=== PATIENT | male | born 1950 | race Caucasian/White ===

== ENCOUNTER 2021-01-02 15:30 | Emergency (ER) | payer OTHER, SELFPAY ==
[2021-01-02 15:40] VITALS: BP 190/87; PULSE 86; RESP 12; TEMP 36.1; O2SAT 96; BMI 28.5
--- NOTE | 2021-01-02 15:45 | DI.RAD.S_ITS ---
PROCEDURE: XR KNEE LT 3V INDICATIONS: KNEE POPPED NOW UNABLE TO BEAR WEIGHT TECHNIQUE: 3 views of the knee were acquired. COMPARISON: None. FINDINGS: Bones: No fractures or dislocations. No suspicious bony lesions. Mild degenerative joint disease. Soft tissues: Small joint effusion. No suspicious soft tissue calcifications. IMPRESSION: No acute osseous abnormalities. Small knee joint effusion. Dictated by: Alfred Vu M.D. on 01/02/2021 at 16:50 Approved by: Alfred Vu M.D. on 01/02/2021 at 16:52
--- NOTE | 2021-01-02 17:46 | ED_ITS ---
HPI - Extremity Injury (Lower) General Chief Complaint: Extremity Injury, Lower Stated Complaint: heard a pop in left knee, now non wt bearing Time Seen by Provider: 01/02/21 16:38 Source: patient Mode of arrival: Ambulatory Limitations: no limitations History of Present Illness HPI Narrative: 70-year-old male here for evaluation of a left knee injury. He states he was at work getting down out of the piece of equipment. It sounds like his left leg (which is the 1 that is injured) was straight at the time when he stepped on a ledge. He is unsure exactly what happened next but he thinks that maybe his foot slipped and he heard a pop on his left knee. Since that time he has had quite a bit of discomfort with putting pressure on his leg. He has had surgery on this knee in the past and has had some cartilage repair. She reports no other injuries from Related Data Previous Rx's Medication Instructions Recorded hydrocodone-acetaminophen 1 tab PO Q6H PRN #7 tab 01/02/21 Allergies Allergy/AdvReac Type Severity Reaction Status Date / Time No Known Drug Allergies Allergy Verified 01/02/21 15:41 Review of Systems Musculoskeletal Comments: Left knee pain Integumentary/Breasts Skin/Breast: Denies rash Hematologic/Lymphatic On Anticoagulants: No Patient History Medical History Arthritis tobacco type: vaping Substance Use Type: does not use Exam Initial Vital Signs Initial Vital Signs: Vital Signs Temperature 97.0 F L 01/02/21 15:40 Pulse Rate 86 01/02/21 15:40 Respiratory Rate 12 01/02/21 15:40 Blood Pressure 190/87 H 01/02/21 15:40 Pulse Oximetry 96 01/02/21 15:40 Const General: cooperative, healthy appearing and comfortable HENCT Head: normal to inspection and normocephalic Resp Effort & Inspection: normal respiratory effort Cardio Pulses: dorsalis pedis present on the left Skin Lesions: no lesions Rashes: no rashes Neuro General: patient alert and patient awake Cognition: normal cognition Speech: speech normal Extrem General: capillary refill normal Other: Patient has tenderness to palpation noted along the left lateral hamstring tendon. He states that palpation of this does reproduce the pain that brought him into the emergency department. He can do a straight leg raise. His quadriceps and patellar tendon are intact. The hamstring tendon does appear to be intact. Psych Appearance: grossly normal and well kempt Course Orders Ordered: ED Orders 01/02/21 15:45 XR knee LT 3V Stat Vital Signs Vital signs: Vital Signs - 8 hr 01/02/21 15:40 Temperature 97.0 F L Pulse Rate 86 Respiratory Rate 12 Blood Pressure 190/87 H Pulse Oximetry 96 MDM - Extremity Injury (Lower) Imaging Data Extremity x-ray #1: Radiologist's Impression: [address] [id number] ReportSigned Patient: Kahlil Cantu RMR#: [id number]: 2Acct:[id number]/Sex: 70 / MDate of Service: 01/02/21Loc: EDAccession Number: [id number] Procedure: XR knee LT 3V Ordering Provider: Alexander Marlow D.O. PROCEDURE: XR KNEE LT 3V INDICATIONS: KNEE POPPED NOW UNABLE TO BEAR WEIGHT TECHNIQUE: 3 views of the knee were acquired. COMPARISON: None. FINDINGS: Bones: No fractures or dislocations. No suspicious bony lesions. Mild degenerative joint disease. Soft tissues: Small joint effusion. No suspicious soft tissue calcifications. IMPRESSION: No acute osseous abnormalities. Small knee joint effusion. Dictated by: Alfred Vu M.D. on 01/02/2021 at 16:50 Approved by: Alfred Vu M.D. on 01/02/2021 at 16:52 MDM Narrative Medical decision making narrative: He is neurovascularly intact. X-ray shows no signs of fracture. I was able to reproduce the tenderness that brought him to the emergency department with palpation of the left lateral hamstring tendon. I suspect that he has a hamstring strain. I have lower suspicion that he has torn hamstring as the tendon appears to be intact as I palpate along its distribution. I did discuss the findings with him. He does have crutches that he can use for his comfort. We discussed return precautions and follow-up instructions. He expressed understanding and agreement. Discharge Plan Departure Patient Disposition: Home Clinical Impression: Left hamstring injury Instructions: DI for Hamstring Strain Activity Restrictions/Additional Instructions: You can walk on your leg as tolerated. Recommend you continue with the anti- inflammatories. Contact your primary provider for a follow-up. Return to the emergency department for any new or worsening symptoms Prescriptions: New hydrocodone-acetaminophen 5-325 mg tablet 1 tab PO Q6H PRN (Reason: pain) Qty: 7 RF: 0
[2021-01-02 18:01] VITALS: BP 170/74; PULSE 62; O2SAT 98
== END 2021-01-02 18:02 | disposition home or self-care (01) ==
PROVIDERS: Emergency Provider Emergency Medicine
DX: S89.92XA Unspecified injury of left lower leg, initial encounter (principal); X58.XXXA Exposure to other specified factors, initial encounter
CPT/HCPCS: 73562; 99283

== ENCOUNTER 2021-03-29 10:46 | Emergency (ER) | payer OTHER, SELFPAY ==
[2021-03-29 10:58] VITALS: BP 217/88; PULSE 58; RESP 14; TEMP 36.5; O2SAT 99; BMI 28.5
--- NOTE | 2021-03-29 11:17 | ED.NEUROSD ---
HPI - Neuro Symptoms/Deficit General Chief Complaint: Neuro Symptoms/Deficit Stated Complaint: follow up after loss of vision Time Seen by Provider: 03/29/21 10:49 Source: patient Mode of arrival: Ambulatory Limitations: no limitations History of Present Illness HPI Narrative: 70-year-old male smoker with history of hypertension and hyperlipidemia presents at the request of his conservation science teacher for a stroke evaluation. The patient developed some vision change about 1 month ago and initially saw his conservation science teacher and was then referred to a retinal specialist whom he just saw few days ago. His symptoms had largely improved and he complains of nothing but that small area of vision change in his left eye only. He has had no change with speech, dizziness, ataxia or extremity numbness, tingling or weakness. He had evaluation by the retinal conservation science teacher who suggested a revascularized and largely resolved branch retinal artery occlusion and because the patient does not have a PCP he sent him to the emergency department for carotid Dopplers, echocardiogram and EKG. Patient is well and free of complaint otherwise On Anticoagulants: Yes (ASA 81 mg daily) Related Data Home Medications Medication Instructions Recorded Confirmed amlodipine 10 mg tablet 10 mg PO QAM 03/29/21 03/29/21 aspirin 81 mg tablet 81 mg PO BEDTIME 03/29/21 03/29/21 losartan 100 mg tablet 100 mg PO BEDTIME 03/29/21 03/29/21 Allergies Allergy/AdvReac Type Severity Reaction Status Date / Time No Known Drug Allergies Allergy Verified 03/29/21 11:03 Review of Systems Review of Systems Narrative: GENERAL: Denies chills, fatigue, malaise, fever, sweats. HEENT: Denies sinus pain, ear pain, sore throat, difficulty swallowing, dizziness. RESPIRATORY: Denies dyspnea, cough, wheezing, hemoptysis, sputum. CARDIOVASCULAR: Denies chest pain, palpitations, orthopnea, edema, GASTROINTESTINAL: Denies nausea, vomiting, abdominal pain, diarrhea, constipation, melena. : Denies dysuria, frequency, incontinence, hematuria, urinary retention. MUSCULOSKELETAL: denies weakness, joint pain, or bony pain SKIN: Denies rash, skin lesions, or other NEUROLOGIC: See HPI PSYCHIATRIC: No concerning psychosocial issues. 12 point review of systems is negative except for those stated above Hematologic/Lymphatic On Anticoagulants: Yes (ASA 81 mg daily) Patient History Medical History Arthritis Social History Smoking Status: Current some day smoker Smoking Status: Current some day smoker tobacco type: vaping alcohol intake frequency: 0-2 drinks per day Substance Use Type: does not use Exam Narrative Exam Narrative: GEN: AOx3 and in mild distress EYES: Pupils are equal, round, and reactive to light and accommodation. Extraoccular muscles are intact bilaterally. There is no subconjunctival hemorrhage or exudate. CHEST: Lungs are clear to auscultation bilaterally and free of wheezes, rales, or rhonchi. Heart rate is regular rhythm, there are no murmurs, clicks, rubs, or gallops. There is no chest wall tenderness. ABD: Abdomen is soft and nontender. There is no guarding or rebound. Bowel sounds are normal in all 4 quadrants. There is no mass or organomegaly. EXT: Full painless ROM of all extremities with no loss of sensation or strength. SKIN: Warm, pink, and dry. No erythema or rash NIH Stroke Scale 1a. LOC: Patient is alert and keenly responsive (0) 1b. LOC Questions: Patient answers both LOC questions accurately (0) 1c. LOC Commands: Patient performs both tasks correctly (0) 2. Best Gaze: Normal (0) 3. Visual: No visual loss (0) 4. Facial palsy: Normal symmetrical movements (0) 5. Motor arm: No drift (0) 6. Motor leg: No drift (0) 7. Limb ataxia: Absent (0) 8. Sensory: Normal (0) 9. Best language: No aphasia; normal (0) 10. Dysarthria: Normal (0) 11. Extinction and inattention: No abnormality (0) NIHSS: 0 Initial Vital Signs Initial Vital Signs: Vital Signs Temperature 97.7 F 03/29/21 10:58 Pulse Rate 58 L 03/29/21 10:58 Respiratory Rate 14 03/29/21 10:58 Blood Pressure 217/88 H 03/29/21 10:58 Pulse Oximetry 99 03/29/21 10:58 Course Consultations Consultation #1: discussion with patient ophtho (Dr. Parmar) suggests workup within the week. Consultation #2: call to Dr. Figueroa. She is happy to help, requests that I sent the note from Dr. Parmar and she will arrange studies as an outpatient and see him within the week. Vital Signs Vital signs: Vital Signs - 8 hr 03/29/21 10:58 Temperature 97.7 F Pulse Rate 58 L Respiratory Rate 14 Blood Pressure 217/88 H Pulse Oximetry 99 MDM - Neuro Symptoms/Deficit MDM Narrative Medical decision making narrative: Patient had neurologic insult 1 month ago and improvement of embolic events with visualized collateral flow by ophtho. Patient does need a workup but will not need admission in order to complete this. Outpatient arrangements have been arranged. Patient has been given extensive return precautions and all questions answered to his apparent satisfaction Discharge Plan Departure Patient Disposition: Home Clinical Impression: Alteration in vision Instructions: DI for Visual Field Disturbances Activity Restrictions/Additional Instructions: *You have been diagnosed with [History of branch retinal artery occlusion, with improvement] *What to do: *Please continue to take your regular medications as directed. * as I told her, I discussed your case with your conservation science teacher (Dr. Parmar) and your PCP (Dr. Figueroa). I have faxed information to Dr. Figueroa and she will order the tests that Dr. Parmar wanted as an outpatient and will then see you in the office within the week. *Return to Emergency Department if you should have any new, worsening or concerning symptoms, such as [fever greater than 101 F, shaking chills, worsening pain, persistent vomiting or other bothersome symptoms] Prescriptions: No Action amlodipine 10 mg tablet 10 mg PO QAM RF: 0 aspirin 81 mg Tablet 81 mg PO BEDTIME RF: 0 losartan 100 mg tablet 100 mg PO BEDTIME RF: 0 Referrals: Krissy Figueroa MD [Physician] -
== END 2021-03-29 11:40 | disposition home or self-care (01) ==
PROVIDERS: Emergency Provider Emergency Medicine
DX: H54.7 Unspecified visual loss (principal)
CPT/HCPCS: 99281

== ENCOUNTER → 2021-04-19 08:01 | Outpatient (CLI) | payer OTHER, SELFPAY ==
--- NOTE | 2021-04-19 | DI.ECHO.S_ITS ---
[facility] + + Hospital +---------+ : : [address] : : : : [address] [place] : : : : [place], : : : : [place] [address] : : : : Phone: [phone] + + [id number] Echocardiogram Report + + :Name: BERNADINE ROMO Study Date: 04/19/2021 Height: 74 in : :[facility] ReadingLocation: Weight: 225 lb : : Gender: Male BSA: 2.3 m2 : :: 1950 Age: 70 yrs BP: 133/62 mmHg: :Reason For Study: RETINAL ARTERY OCCLUSION : : Performed By: Jorge Back : :Referring: HIMA DILLARD : + + Interpretation Summary Normal left ventricle size with ejection fraction 60-65%. Mildly dilated both atria. The aortic valve is mildly calcified. No valvular regurgitation, Procedure: A two-dimensional transthoracic echocardiogram with color flow and Doppler was performed. The study quality was technically adequate. There is no prior echocardiogram noted for this patient. The patient was in normal sinus rhythm during the exam. The patient had frequent PVCs during the exam. Left Ventricle: The left ventricle is normal in size. There is normal left ventricular wall thickness. The ejection fraction is estimated to be 60-65%. There are no focal wall motion abnormalities. Right Ventricle: The right ventricle is normal in size and function. Atria: Both atria are mildly dilated. There is no Doppler evidence for an atrial septal defect. Mitral Valve: The mitral valve is normal in structure and function. There is trace mitral regurgitation. Aortic Valve: The aortic valve is trileaflet. The aortic valve is mildly calcified. The aortic valve opens well. No aortic regurgitation is present. Tricuspid Valve: The tricuspid valve is normal in structure and function. There is trace tricuspid regurgitation. The right ventricular systolic pressure is estimated to be at least 22 mmHg based on an estimated right atrial pressure of 3 mm Hg. Pulmonic Valve: The pulmonic valve is normal in structure and function. There is trace pulmonic regurgitation. Great Vessels: The aortic root is normal size. The dimensions of the ascending aorta are normal. The pulmonary artery is normal size. The IVC is of normal diameter and collapses greater than 50% with a sniff. This suggests a low right atrial pressure of 3 mm Hg. Pericardium/ Pleura There is no pericardial effusion. There is no pleural effusion. MMode/2D Measurements & Calculations LVIDd: 5.5 cm LVOT diam: 2.1 cm LVIDs: 3.2 cm Ao root diam: 3.5 cm IVSd: 1.0 cm asc Aorta Diam: 2.8 cm LVPWd: 0.81 cm Ao Arch Diam (Prox Trans): 2.6 cm LV valverde. diameter/BSA (cm/m^2): 2.4 LV sys. diameter/BSA (cm/m^2): 1.4 FS: 42.1 % EPSS: 0.60 cm LA A2 area: 24.7 cm2 RA long axis: 5.5 cm LA A4 area: 24.8 cm2 RA area: 22.3 cm2 LA length (vol): 5.9 cm RA vol: 77.0 ml LA vol: 88.4 ml RA : 33.7 ml/m2 LA vol index: 38.7 ml/m2 IVC diam: 1.5 cm Doppler Measurements & Calculations Ao V2 max: 198.7 cm/sec LVOT Max Ignacio: 139.0 cm/sec Ao V2 mean: 147.1 cm/sec LV V1 max P.7 mmHg Ao V2 VTI: 52.1 cm LV V1 VTI: 30.8 cm Ao max P.8 mmHg Ao mean P.4 mmHg APOLINAR(I,D): 2.1 cm2 MV E max ignacio: 89.1 cm/sec APOLINAR(V,D): 2.5 cm2 MV A max ignacio: 82.8 cm/sec APOLINAR indexed to BSA (cm^2/m^2): 0.93 MV E/A: 1.1 sev ratio: 0.59 Med Peak E' Ignacio: 5.7 cm/sec E/E' med: 15.7 Lat Peak E' Ignacio: 8.2 cm/sec E/E' lat: 10.9 E/e' average: 13.3 MV dec time: 0.25 sec TR max ignacio: 219.0 cm/sec TR max P.2 mmHg PA V2 max: 106.3 cm/sec SV(LVOT): 111.2 ml PA V2 mean: 78.4 cm/sec PA mean P.7 mmHg PA pr(Accel): 27.6 mmHg Electronically signed by: Nayan Amado on Reading Physician:04/19/2021 04:53 PM
--- NOTE | 2021-04-19 | DI.US.S_ITS ---
PROCEDURE: US CAROTID DOPPLER BI INDICATIONS: RETINAL ARTERY BRANCH OCCLUSION LEFT EYE TECHNIQUE: Color and pulse Doppler interrogation was performed of both carotid systems, with image documentation and velocity measurements. COMPARISON: None. FINDINGS: Stenosis calculations are based on SRU (Society of Radiologists in Ultrasound) criteria. Right side: Brachial blood pressure: 144/77 mm Hg. Common carotid artery peak systolic velocity: 70 cm/sec. Internal carotid artery peak systolic velocity: 100 cm/sec. Internal carotid artery end diastolic velocity: 28 cm/sec. External carotid artery peak systolic velocity: 90 cm/sec. ICA/CCA peak systolic ratio: 1.4 Mcguire scale imaging description: Moderate atherosclerotic changes are seen. Percent internal carotid artery stenosis: Less than 50% by velocity criteria. Vertebral artery: The right vertebral artery is not well seen. Left side: Brachial blood pressure: 141/76 mm Hg. Common carotid artery peak systolic velocity: 112 cm/sec. Internal carotid artery peak systolic velocity: 238 cm/sec. Internal carotid artery end diastolic velocity: 54 cm/sec. External carotid artery peak systolic velocity: 100 cm/sec. ICA/CCA peak systolic ratio: 2.1 Mcguire scale imaging description: Moderate atherosclerotic change can be seen. Percent internal carotid artery stenosis: Greater than 70% by velocity criteria Vertebral artery: Flow direction is antegrade. IMPRESSION: There is a greater than 70% stenosis seen of the left internal carotid artery. Vascular surgery consultation is recommended. A dedicated CT angiogram of the neck may also be helpful for further evaluation. Dictated by: Ankur Lira M.D. on 04/19/2021 at 16:23 Approved by: Ankur Lira M.D. on 04/19/2021 at 16:24
== END ==
PROVIDERS: PCP Student in an Organized Health Care Education/Training Program; Referring Provider Student in an Organized Health Care Education/Training Program; Visit Provider Student in an Organized Health Care Education/Training Program
DX: H34.232 Retinal artery branch occlusion, left eye (principal); I65.22 Occlusion and stenosis of left carotid artery
CPT/HCPCS: 93306; 93880

== ENCOUNTER 2021-10-16 18:35 | Inpatient (IN) | payer MEDICARE, SELFPAY ==
[2021-10-16] VITALS (7 sets, daily range): BP systolic 140–182; BP diastolic 70–105; PULSE 62–82; RESP 20–22; TEMP 36.3–38.6; O2SAT 88–99; BMI 27.6
--- NOTE | 2021-10-16 18:39 | DI.RAD.S_ITS ---
PROCEDURE: XR CHEST 1V INDICATIONS: chest pain TECHNIQUE: One view of the chest was acquired. COMPARISON: None. FINDINGS: Surgical changes and devices: None. Lungs and pleura: Mildly coarsened interstitial markings. No consolidation, pleural effusions or pneumothorax. Mediastinum: Mediastinal contours appear normal. The cardiac silhouette is upper limits of normal. Bones and chest wall: No suspicious bony lesions. Overlying soft tissues appear unremarkable. IMPRESSION: No acute cardiopulmonary abnormality. Dictated by: Rc Jerez M.D. on 10/16/2021 at 19:29 Approved by: Rc Jerez M.D. on 10/16/2021 at 19:30
[2021-10-16 18:47] LABS: Add Manual Diff / Slide Review NO; Basophils Absolute Auto 300 /uL (0-100); Basophils Percent Auto 1.2 % (0-2); Eosinophils Absolute Auto 1500 /uL (0-450); Eosinophils Percent Auto 6.7 % (2-4); Hematocrit 43.6 % (41-53); Lymphocytes Absolute Auto 5400 /uL (1100-4500); Lymphocytes Percent Auto 24.6 % (25-40); Mean Corpuscular HGB Conc 34.5 % (30-36); Mean Corpuscular Volume 89.8 fL (80-100); Monocytes Absolute Auto 1400 /uL (0-900); Monocytes Percent Auto 6.6 % (3-14); Neutrophils Absolute Auto 13300 /uL (1500-7000); Neutrophils Percent Auto 60.9 % (50-75); Platelet Count 340 X10^3/uL (150-400); Red Blood Cell Count 4.86 X10^6/uL (4.5-5.9); Red Cell Distribution Width 13.2 % (11.6-14.8); White Blood Cell Count 21.9 X10^3/uL (4.5-11.0)
--- NOTE | 2021-10-16 18:50 | DI.CT.S_ITS ---
PROCEDURE: CT ABDOMEN PELVIS W CON INDICATIONS: abd pain, epigastric/Rsided TECHNIQUE: After the administration of oral and IV contrast, axial sections were acquired from the lung bases to the pubic symphysis. Coronal and sagittal reformats were performed. For radiation dose reduction, the following was used: automated exposure control, adjustment of mA and/or kV according to patient size. COMPARISON: None. FINDINGS: Image quality: Excellent. Lung bases: Unremarkable. Heart: No significant findings. ABDOMEN: Liver: Unremarkable. Gallbladder: Unremarkable. Biliary ducts: Unremarkable. Pancreas: Unremarkable. Spleen: Unremarkable. Adrenal Glands: Unremarkable. Kidneys and Ureters: Symmetric enhancement without evidence of obstructive uropathy. Bilateral cortical hypoattenuating lesions are seen measuring up to 2.9 cm, compatible with cysts. Stomach and Bowel: Small hiatal hernia. Wall thickening of the duodenum with surrounding fluid, compatible with duodenitis. Sigmoid diverticulosis. The appendix appears normal. Peritoneum: A few scattered foci of free intraperitoneal gas are seen. Ventral Wall: Trace fat containing periumbilical hernia. Abdominal Nodes: No retroperitoneal or mesenteric adenopathy by size criteria. Vessels: Aorta and inferior vena cava are normal in size. PELVIS: Pelvic Organs: Unremarkable. Bladder: Not well distended. Pelvic Nodes: No enlarged lymph nodes. Miscellaneous: No inguinal hernias are seen. Lipoma of the left spermatic cord. Bones: Unremarkable. IMPRESSION: 1. Duodenitis with micro perforation. Findings were discussed with the ordering physician at the time of dictation. Dictated by: Rc Jerez M.D. on 10/16/2021 at 19:39 Approved by: Rc Jerez M.D. on 10/16/2021 at 19:46
--- NOTE | 2021-10-16 18:51 | ED_ITS ---
HPI - Abdominal Pain General Chief Complaint: Chest Pain Stated Complaint: chest/abd pain/vomiting x1 day Time Seen by Provider: 10/16/21 18:43 Source: patient and family Mode of arrival: Ambulatory Limitations: no limitations History of Present Illness HPI narrative: This is a 70 year old male with complaint of abdominal pain sudden onset this evening in the epigastric area and radiating to the right side. Patient denies radiation to back. He's had four days of [place] with vomiting for 24 hours. No fevers or chills. No back or flank pain. Denies chest pain. Shortness of breath with pain. Been having regular bowel movements. No hematochezia or melena. No issues with urination. Pain is constant with no relief. History of cardiac stent x 1 and left carotid endarectomy in July 2021, hypertension and dyslipidemia. On asa 81mg daily. Remote bilateral knee surgery. No tob, alcohol or illicit. Krissy Figueroa is PCP. Related Data Home Medications Medication Instructions Recorded Confirmed amlodipine 10 mg tablet 10 mg PO QAM 03/29/21 10/17/21 aspirin 81 mg tablet 81 mg PO BEDTIME 03/29/21 10/17/21 losartan 100 mg tablet 100 mg PO BEDTIME 03/29/21 10/17/21 atorvastatin 80 mg PO BEDTIME 10/17/21 10/17/21 fenofibrate 54 mg tablet 54 mg PO DAILY 10/17/21 10/17/21 Allergies Allergy/AdvReac Type Severity Reaction Status Date / Time No Known Drug Allergies Allergy Verified 10/18/21 12:56 Review of Systems Review of Systems ROS Unobtainable: All systems reviewed & are unremarkable except as noted in HPI and below Patient History Medical History Arthritis Social History household members: none Smoking Status: Former smoker alcohol intake: former Smoking Status: Current some day smoker tobacco type: vaping alcohol intake frequency: 0-2 drinks per day Substance Use Type: does not use Exam Narrative Exam Narrative: GENERAL: Alert and oriented x three, male in moderate distress. HEENT: Head normocephalic, atraumatic, EOMI, pupils reactive, face symmetric, moist mucous membranes NECK: Supple, full range of motion CARDIOVASCULAR: Regular rate and rhythm without murmurs, rubs or gallops. RESPIRATORY: Breath sounds equal bilaterally, no wheezes rales or rhonchi. ABDOMEN: Soft, patient has epigastric tenderness. Hyperbowel sounds all 4 quadrants. No guarding or rebound, rigidity, no mass. No pulsatile mass. : No CVA tenderness EXTREMITIES: Normal range of motion, no clubbing or edema. Neurovascularly intact. Full range of motion. NEUROLOGICAL: Cranial nerves II through XII grossly intact. Moving all extremities SKIN: Warm, dry, no petechiae, no rashes or lesions. Initial Vital Signs Initial Vital Signs: Vital Signs Temperature 97.4 F L 10/16/21 18:51 Pulse Rate 62 10/16/21 18:51 Respiratory Rate 22 10/16/21 18:51 Blood Pressure 182/81 H 10/16/21 18:51 Pulse Oximetry 99 10/16/21 18:51 Course Orders Ordered: Acetaminophen (Acetaminophen 325 Mg Tablet) 650 mg PO Q6HR PRN PRN Reason: Fever/Mild Pain (1-3) Amlodipine Besylate (Amlodipine 5 Mg Tablet) 10 mg PO DAILY [facility] Atorvastatin Calcium (Atorvastatin 20 Mg Tablet) 80 mg PO BEDTIME [facility] Last Admin: 10/18/21 20:22 Dose: Not Given Documented by: RAMOS Enoxaparin Sodium (Enoxaparin 40 Mg/0.4 Ml Syringe) 40 mg SUBCUT DAILY [facility] Last Admin: 10/18/21 09:15 Dose: 40 mg Documented by: Admin: 10/17/21 09:00 Dose: 40 mg Documented by: CARISSA Fenofibrate (Fenofibrate, Micronized 67 Mg Capsule) 67 mg PO DAILY [facility] Fentanyl (Fentanyl 100 Mcg/2 Ml Inj) 0 mcg IV Q5M PRN PRN Reason: Pain, Moderate (4-6) Hydromorphone HCl (Hydromorphone 2 Mg Inj) 0 mg IV Q5M PRN PRN Reason: Pain, Severe (7-10) Piperacillin Sod/Tazobactam (Sod 3.375 gm/ Sodium Chloride) 100 mls @ 25 mls/hr IV Q8H [facility] Last Admin: 10/19/21 03:55 Dose: 25 mls/hr Documented by: Infusion: 10/19/21 00:21 Dose: 0 mls/hr Documented by: Admin: 10/18/21 20:21 Dose: 25 mls/hr Documented by: Infusion: 10/18/21 14:00 Dose: 0 mls/hr Documented by: Admin: 10/18/21 13:25 Dose: 25 mls/hr Documented by: Infusion: 10/18/21 12:27 Dose: 0 mls/hr Documented by: Admin: 10/18/21 03:39 Dose: 25 mls/hr Documented by: Infusion: 10/17/21 23:01 Dose: 0 mls/hr Documented by: [email or web address] Admin: 10/17/21 19:01 Dose: 25 mls/hr Documented by: Infusion: 10/17/21 17:03 Dose: 25 mls/hr Documented by: Admin: 10/17/21 13:03 Dose: 25 mls/hr Documented by: Infusion: 10/17/21 13:00 Dose: 25 mls/hr Documented by: Admin: 10/17/21 03:54 Dose: 25 mls/hr Documented by: Admin: 10/16/21 21:52 Dose: Not Given Documented by: IQRA Fluconazole (Diflucan) 200 mg in 100 mls @ 100 mls/hr IV 0900 KELIN Last Infusion: 10/18/21 19:31 Dose: 0 mls/hr Documented by: Admin: 10/18/21 09:15 Dose: 100 mls/hr Documented by: Infusion: 10/17/21 10:36 Dose: 100 mls/hr Documented by: Admin: 10/17/21 09:36 Dose: 100 mls/hr Documented by: CARISSA Multivitamins 10 ml/ Chromium/Copper/Manganese/Seleni/Zn 1 ml/ Amino Acids/Electrolytes 1,011 mls @ 42.125 mls/hr IV 1800 ONE Stop: 10/19/21 17:59 Last Admin: 10/18/21 19:36 Dose: Not Given Documented by: RAMOS Lorazepam (Lorazepam 2 Mg/Ml Inj) 1 mg IV Q4HR PRN PRN Reason: Cramping Last Admin: 10/17/21 10:01 Dose: 1 mg Documented by: Admin: 10/17/21 02:57 Dose: 1 mg Documented by: IQRA Losartan Potassium (Losartan 50 Mg Tablet) 100 mg PO DAILY [facility] Last Admin: 10/18/21 09:14 Dose: 100 mg Documented by: Admin: 10/17/21 08:54 Dose: 100 mg Documented by: CARISSA Morphine Sulfate (Morphine 2 Mg/Ml Inj) 6 mg IV Q4HR PRN PRN Reason: Pain, Severe (7-10) Last Admin: 10/19/21 04:56 Dose: 6 mg Documented by: Admin: 10/19/21 00:50 Dose: 6 mg Documented by: Admin: 10/18/21 21:13 Dose: 4 mg Documented by: Admin: 10/18/21 17:44 Dose: 4 mg Documented by: Admin: 10/18/21 05:28 Dose: 6 mg Documented by: Admin: 10/17/21 18:28 Dose: 4 mg Documented by: CARISSA Naloxone HCl (Naloxone 0.4 Mg/Ml Vial) 0.2 mg IV Q2MIN PRN PRN Reason: Opiate Reversal Naloxone HCl (Naloxone 0.4 Mg/Ml Vial) 0.2 mg IV Q2MIN PRN PRN Reason: Opiate Reversal Ondansetron HCl (Ondansetron 4 Mg/2 Ml Inj) 4 mg IV Q6HR [facility] Last Admin: 10/19/21 05:23 Dose: Not Given Documented by: Admin: 10/19/21 02:11 Dose: Not Given Documented by: Admin: 10/18/21 19:32 Dose: Not Given Documented by: Admin: 10/18/21 12:30 Dose: Not Given Documented by: Admin: 10/18/21 05:28 Dose: 4 mg Documented by: [email or web address] Admin: 10/18/21 00:18 Dose: 4 mg Documented by: Admin: 10/17/21 18:26 Dose: 4 mg Documented by: Admin: 10/17/21 13:00 Dose: Not Given Documented by: Admin: 10/17/21 05:28 Dose: 4 mg Documented by: Admin: 02/16/22 23:35 Dose: 4 mg Documented by: IQRA Ondansetron HCl (Ondansetron 4 Mg/2 Ml Inj) 4 mg IV NOW PRN PRN Reason: Nausea And Vomiting Oxycodone HCl (Oxycodone Ir 10 Mg Tablet) 20 mg PO Q3HR PRN PRN Reason: Pain, Severe (7-10) Last Admin: 10/18/21 09:15 Dose: 20 mg Documented by: Admin: 10/17/21 22:36 Dose: 20 mg Documented by: Admin: 10/17/21 17:15 Dose: 20 mg Documented by: Admin: 10/17/21 13:01 Dose: 20 mg Documented by: Admin: 10/17/21 09:57 Dose: 20 mg Documented by: CARISSA Pantoprazole Sodium (Pantoprazole 40 Mg Vial) 40 mg IV BID [facility] Last Admin: 10/18/21 20:21 Dose: 40 mg Documented by: Admin: 10/18/21 09:15 Dose: 40 mg Documented by: Admin: 10/17/21 20:21 Dose: 40 mg Documented by: Admin: 10/17/21 08:48 Dose: 40 mg Documented by: Admin: 10/16/21 21:57 Dose: 40 mg Documented by: IQRA Discontinued Medications Albuterol (Albuterol 2.5 Mg/3 Ml Neb (Adult)) 2.5 mg INH NOW ONE Stop: 10/18/21 15:20 Last Admin: 10/18/21 15:20 Dose: 2.5 mg Documented by: FREDY Albuterol (Albuterol 2.5 Mg/3 Ml Neb (Adult)) 2.5 mg INH NOW ONE Stop: 10/18/21 17:07 Last Admin: 10/18/21 19:36 Dose: Not Given Documented by: RAMOS Amlodipine Besylate (Amlodipine 5 Mg Tablet) 5 mg PO DAILY [facility] Last Admin: 10/18/21 09:15 Dose: 5 mg Documented by: Admin: 10/17/21 08:54 Dose: 5 mg Documented by: CARISSA Enoxaparin Sodium (Enoxaparin 30 Mg/0.3 Ml Syringe) 30 mg SUBCUT DAILY [facility] Furosemide (Furosemide 40 Mg/4 Ml Vial) 20 mg IV NOW ONE Stop: 10/18/21 16:06 Last Admin: 10/18/21 16:21 Dose: 20 mg Documented by: FREDY Furosemide (Furosemide 40 Mg/4 Ml Vial) 20 mg IV NOW ONE Stop: 10/18/21 18:06 Last Admin: 10/18/21 19:30 Dose: Not Given Documented by: RAMOS Hydromorphone HCl (Hydromorphone 1 Mg Inj) 1 mg IV NOW ONE Stop: 10/16/21 19:57 Last Admin: 10/16/21 20:06 Dose: 1 mg Documented by: JOCELIN Sodium Chloride (Normal Saline 0.9%) 1,000 mls @ 1,000 mls/hr IV BOLUS ONE Stop: 10/16/21 19:50 Last Infusion: 10/16/21 20:27 Dose: 1,000 mls/hr Documented by: Admin: 10/16/21 18:59 Dose: 1,000 mls/hr Documented by: TIMOTHY Piperacillin Sod/Tazobactam (Sod 4.5 gm/ Sodium Chloride) 100 mls @ 200 mls/hr IV NOW ONE Stop: 10/16/21 19:49 Last Infusion: 10/16/21 21:14 Dose: 0 mls/hr Documented by: Admin: 10/16/21 20:24 Dose: 200 mls/hr Documented by: JOCELIN Lactated Ringer's (Lactated Ringers) 2,993.7 mls @ 997.9 mls/hr 30 ml/kg infuse over 3 hr (2993.7 ml) IV NOW ONE Stop: 10/16/21 22:47 Last Infusion: 10/17/21 00:00 Dose: 0 mls/hr Documented by: Infusion: 10/16/21 21:50 Dose: 997.9 mls/hr Documented by: Admin: 10/16/21 20:07 Dose: 997.9 mls/hr Documented by: JOCELIN Lactated Ringer's (Lactated Ringers) 1,000 mls @ 125 mls/hr IV CONT KELIN Last Admin: 10/19/21 03:55 Dose: 125 mls/hr Documented by: Infusion: 10/19/21 01:43 Dose: 125 mls/hr Documented by: Admin: 10/18/21 17:43 Dose: 125 mls/hr Documented by: Infusion: 10/18/21 17:21 Dose: 0 mls/hr Documented by: Admin: 10/18/21 14:16 Dose: 100 mls/hr Documented by: Infusion: 10/18/21 14:16 Dose: 100 mls/hr Documented by: [email or web address] Admin: 10/18/21 13:00 Dose: 100 mls/hr Documented by: Infusion: 10/18/21 07:50 Dose: 100 mls/hr Documented by: [email or web address] Admin: 10/17/21 21:50 Dose: 100 mls/hr Documented by: [email or web address] Infusion: 10/17/21 21:46 Dose: 100 mls/hr Documented by: Admin: 10/17/21 11:46 Dose: 100 mls/hr Documented by: Infusion: 10/17/21 09:39 Dose: 100 mls/hr Documented by: Admin: 10/16/21 23:39 Dose: 100 mls/hr Documented by: IQRA Fluconazole (Diflucan) 200 mg in 100 mls @ 100 mls/hr IV Q24H KELIN Last Admin: 10/17/21 08:45 Dose: Not Given Documented by: CARISSA Lorazepam (Lorazepam 2 Mg/Ml Inj) 0.5 mg IV NOW ONE Stop: 10/16/21 19:15 Last Admin: 10/16/21 19:18 Dose: 0.5 mg Documented by: TIMOTHY Morphine Sulfate (Morphine 4 Mg/Ml Inj) 4 mg IV NOW ONE Stop: 10/16/21 18:51 Last Admin: 10/16/21 18:59 Dose: 4 mg Documented by: TIMOTHY Morphine Sulfate (Morphine 2 Mg/Ml Inj) 2 mg IV Q4HR PRN PRN Reason: Pain, Moderate (4-6) Last Admin: 10/16/21 21:04 Dose: 2 mg Documented by: JOCELIN Morphine Sulfate (Morphine 2 Mg/Ml Inj) 2 mg IV Q2HR PRN PRN Reason: Pain, Moderate (4-6) Last Admin: 10/17/21 02:30 Dose: 2 mg Documented by: Admin: 10/16/21 23:35 Dose: 2 mg Documented by: IQRA Morphine Sulfate (Morphine 4 Mg/Ml Inj) 4 mg IV Q4HR KELIN Last Admin: 10/17/21 08:48 Dose: 4 mg Documented by: Admin: 10/17/21 04:49 Dose: 4 mg Documented by: IQRA Ondansetron HCl (Ondansetron 4 Mg/2 Ml Inj) 4 mg IV NOW ONE Stop: 10/16/21 18:51 Last Admin: 10/16/21 18:59 Dose: 4 mg Documented by: TIMOTHY Oxycodone HCl (Oxycodone Ir 5 Mg Tablet) 5 mg PO Q3HR PRN PRN Reason: Pain, Moderate (4-6) Oxycodone HCl (Oxycodone Ir 10 Mg Tablet) 10 mg PO Q3HR PRN PRN Reason: Pain, Severe (7-10) Last Admin: 10/17/21 00:52 Dose: 10 mg Documented by: IQRA Oxycodone HCl (Oxycodone Ir 10 Mg Tablet) 15 mg PO Q3HR PRN PRN Reason: Pain, Severe (7-10) Reevaluation(s) Reevaluation #1: Patient much more comfortable after dose of morphine with Ativan afterwards. Time: 19:50 Consultations Consultation #1: Dr. Pena, general surgery patient appears to have duodenitis with micro perforation. Final report has not resulted but patient has a white count of 21, elevated lactate at 3.8 with creatinine 1.3 unclear if this is his baseline. Patient is on aspirin daily as well as medication for blood pressure dyslipidemia with prior cardiac stent and carotid endarterectomy. Patient started on Zosyn, 30 cc/kilos fluid bolus initiated. Patient admitted to Dr. Pena. Vital Signs Vital signs: Vital Signs - 8 hr 10/16/21 18:51 Temperature 97.4 F L Pulse Rate 62 Respiratory Rate 22 Blood Pressure 182/81 H Pulse Oximetry 99 MDM - Abdominal Pain Lab Data Result diagrams: 10/19/21 08:25 10/18/21 07:16 Labs: Lab Results 10/16/21 10/16/21 10/16/21 Range/Units 18:40 18:40 18:40 WBC 21.9 H (4.5-11.0) X10^3/uL RBC 4.86 (4.5-5.9) X10^6/uL Hgb 15.0 (13.5-17.5) g/dL Hct 43.6 (41-53) % MCV 89.8 (80-100) fL MCH 31.0 (26-34) PG MCHC 34.5 (30-36) % RDW 13.2 (11.6-14.8) % Plt Count 340 (150-400) X10^3/uL Neut % (Auto) 60.9 (50-75) % Lymph % (Auto) 24.6 L (25-40) % [place] % (Auto) 6.6 (3-14) % Eos % (Auto) 6.7 H (2-4) % Baso % (Auto) 1.2 (0-2) % Neut # (Auto) 49625 H (3785-7452) /uL Lymph # (Auto) 5400 H (1569-3187) /uL [place] # (Auto) 1400 H (0-900) /uL Eos # (Auto) 1500 H (0-450) /uL Baso # (Auto) 300 H (0-100) /uL Sodium 137 (137-145) mmol/L Potassium 3.7 (3.4-5.1) mmol/L Chloride 101 (98-107) mmol/L Carbon Dioxide 24 (22-32) mmol/L BUN 20 (9-20) mg/dL Creatinine 1.30 H (0.66-1.25) mg/dL Estimated GFR 54.7 L (>60) mL/min BUN/Creatinine Ratio 15.4 (6-22) Glucose 148 H (80-110) mg/dL Lactate 3.8 H (0.7-2.1) mmol/L Calcium 10.0 (8.4-10.2) mg/dL Magnesium 1.9 (1.6-2.3) mg/dL Total Bilirubin 0.7 (0.2-1.3) mg/dL AST 25 (17-59) IU/L ALT 18 (<50) IU/L Alkaline Phosphatase 95 (38-126) U/L Total Creatine Kinase 89 (55-170) U/L CK-MB (CK-2) TNP CK-MB (CK-2) Rel Index TNP Troponin I 0.028 (0.01-0.034) ng/mL Total Protein 8.6 H (6.3-8.2) g/dL Albumin 4.9 (3.5-5.0) g/dL Globulin 3.7 (1.7-4.1) g/dL Albumin/Globulin Ratio 1.3 (1.0-2.8) Lipase 396 H (23-300) U/L Imaging Data CT scan - abdomen/pelvis: Radiologist's Impression: [address] [address] [address] Scan Report Signed Patient: Kahlil Cantu MR#: [id number] : 1950 Acct:[id number] Age/Sex: 70 / M Date of Service: 10/16/21 Loc: ED Accession Number: [id number] ?? Procedure: CT abdomen pelvis w con Ordering Provider: Antonia Togn D.O. PROCEDURE:? CT ABDOMEN PELVIS W CON ? INDICATIONS:? abd pain, epigastric/Rsided ? TECHNIQUE:? After the administration of oral and IV contrast, axial sections were acquired from the lung bases to the pubic symphysis.? Coronal and sagittal reformats were performed.? For radiation dose reduction, the following was used:? automated exposure control, adjustment of mA and/or kV according to patient size. ? COMPARISON:? None. ? FINDINGS:? Image quality:? Excellent.? ? Lung bases:? Unremarkable.? ? Heart:? No significant findings. ? ? ABDOMEN: Liver:? Unremarkable.? ? Gallbladder:? Unremarkable.? ? Biliary ducts:? Unremarkable.? ? Pancreas:? Unremarkable.? ? Spleen:? Unremarkable.? ? Adrenal Glands:? Unremarkable.? ? Kidneys and Ureters:? Symmetric enhancement without evidence of obstructive uropathy.? Bilateral cortical hypoattenuating lesions are seen measuring up to 2.9 cm, compatible with cysts.? ? ? Stomach and Bowel:? Small hiatal hernia.? Wall thickening of the duodenum with surrounding fluid, compatible with duodenitis.? Sigmoid diverticulosis.? The appendix appears normal.? Peritoneum: ? A few scattered foci of free intraperitoneal gas are seen. ? Ventral Wall: ? Trace fat containing periumbilical hernia.? Abdominal Nodes:? No retroperitoneal or mesenteric adenopathy by size criteria.? Vessels:? Aorta and inferior vena cava are normal in size.? ? PELVIS: Pelvic Organs:? Unremarkable.? ? Bladder:? Not well distended.? ? Pelvic Nodes: No enlarged lymph nodes.? Miscellaneous: No inguinal hernias are seen. ? ? Lipoma of the left spermatic cord. ? Bones:? Unremarkable.? IMPRESSION:? ? 1. Duodenitis with micro perforation. ? ? Findings were discussed with the ordering physician at the time of dictation.? ? Dictated by: Rc Jerez M.D. on 10/16/2021 at 19:39 ? ? Approved by: Rc Jerez M.D. on 10/16/2021 at 19:46?? Chest x-ray: Radiologist's Impression: Launch?[place] [address] XRay Report Signed Patient: Kahlil Cantu MR#: [id number] : 1950 Acct:[id number] Age/Sex: 70 / M Date of Service: 10/16/21 Loc: ED Accession Number: [id number] ?? Procedure: XR chest 1V Ordering Provider: Antonia Tong D.O. PROCEDURE:? XR CHEST 1V ? INDICATIONS:? chest pain ? TECHNIQUE:? One view of the chest was acquired.? ? COMPARISON:? None. ? FINDINGS:? ? Surgical changes and devices:? None.? ? Lungs and pleura:? Mildly coarsened interstitial markings.? No consolidation, pleural effusions or pneumothorax.? ? Mediastinum:? Mediastinal contours appear normal.? The cardiac silhouette is upper limits of normal.? ? Bones and chest wall:? No suspicious bony lesions.? Overlying soft tissues appear unremarkable.? ? IMPRESSION:? No acute cardiopulmonary abnormality. ? ? Dictated by: Rc Jerez M.D. on 10/16/2021 at 19:29 ? ? Approved by: Rc Jerez M.D. on 10/16/2021 at 19:30?? ECG Data Attestation: I personally reviewed and interpreted this ECG as follows: Prior ECG tracings: available for review Interpretation: Sinus rhythm right bundle-branch block. Rate of 60 2p are 188 QRS of 146 and QTC of 470. No acute ST elevation noted. Patient's right bundle-branch block appears to be new from prior EKG in 08/30/2009 [facility] Narrative Medical decision making narrative: This is a 70-year-old male with several days of abdominal discomfort with sudden worsening today. Patient appears quite uncomfortable. Labs show leukocytosis of 21, chest x-ray does not show acute change but CT abdomen pelvis shows a duodenitis with micro perforation. Patient has potentially acute kidney injury versus chronic kidney disease there is no priors for comparison. Electrolytes are appropriate. Lactate is elevated. Antibiotics and 30 cc per kilos fluid bolus initiated. Dr. Pena accepts for admission and will put in orders. Critical Care Time Critical Care Time Critical Care Time: Yes Total Critical Care Time: 35 Attestation: The high probability of a clinically significant, sudden or life threatening deterioration of the [cardiac, pulm] system(s) required my full and direct attention, intervention and personal management. The aggregate critical care time was [35] minutes. This time is in addition to time spent performing reported procedures but includes the following: [x] Data Review and interpretation [x] Patient assessment and monitoring of vital signs [x] Documentation [x] Medication orders and management Discharge Plan Departure Patient Disposition: Admitted As Inpatient Clinical Impression: Duodenitis, Intestinal perforation Admit Date/Time: 10/16/21 19:52 Admit Provider: Josefa Pena
[2021-10-16] MEDS: MORPHINE 4 MG/ML INJ IV (18:59)
[2021-10-16] MEDS: ONDANSETRON 4 MG/2 ML INJ IV ×2 (18:59→23:35)
[2021-10-16] MEDS: SODIUM CHLORIDE 0.9% 1,000 ML 1000 ML IV (18:59)
[2021-10-16 19:02] LABS: Alanine Aminotransferase 18 IU/L (<50); Albumin 4.9 g/dL (3.5-5.0); Albumin Globulin Ratio 1.3 (1.0-2.8); Alkaline Phosphatase 95 U/L (38-126); Aspartate Aminotransferase 25 IU/L (17-59); BUN Creatinine Ratio 15.4 (6-22); Bilirubin Total 0.7 mg/dL (0.2-1.3); Blood Urea Nitrogen 20 mg/dL (9-20); Carbon Dioxide 24 mmol/L (22-32); Chloride 101 mmol/L (98-107); Creatine Kinase 89 U/L (55-170); Estimated Glomerular Filt Rate 54.7 mL/min (>60); Globulin 3.7 g/dL (1.7-4.1); Glucose 148 mg/dL (80-110); HEMOLYSIS < 15 (0-50); Lipase 396 U/L (23-300); Magnesium 1.9 mg/dL (1.6-2.3); Potassium 3.7 mmol/L (3.4-5.1); Sodium 137 mmol/L (137-145); Total Protein 8.6 g/dL (6.3-8.2)
[2021-10-16 19:12] LABS: Troponin I 0.028 ng/mL (0.01-0.034)
[2021-10-16] MEDS: LORazepam 2 MG/ML INJ 0.5 MG IV (19:18)
[2021-10-16 19:26] LABS: Lactate (Lactic Acid) 3.8 mmol/L (0.7-2.1)
[2021-10-16] MEDS: HYDROMORPHONE 1 MG INJ IV (20:06)
[2021-10-16] MEDS: LACTATED RINGERS 2,993.7 ML 997.9 ML IV (20:07)
[2021-10-16] MEDS: PIPERACILLIN/TAZO 4.5 GM in SODIUM CHLORIDE 0.9% 100 ML 200 ML IV (20:24)
[2021-10-16] MEDS: MORPHINE 2 MG/ML INJ IV ×2 (21:04→23:35)
[2021-10-16 21:14] LABS: COVID19 -Nasal RAPID Negative (Negative)
[2021-10-16 21:18] LABS: Reflexed Lactate in 2 Hours Y
[2021-10-16] MEDS: PANTOPRAZOLE 40 MG VIAL IV (21:57)
--- NOTE | 2021-10-16 22:51 | PC.NURSE ---
Pt. admitted for sepsis. Arrived to the unit via bed. Pt. is a&o, temp. 101.4, lungs CTA on 3L 02NC. Pt. has hypoactiv BT's, abd. tender, c/o upper abd. pain 9/10 which is worse with movement and deep breathing. Pain seems to wax and wane, at lowest is 3/10. Oriented to room, call light use and bed control.
[2021-10-16 23:12] LABS: Lactate 2HR (Lactic Acid Rflx) 1.8 mmol/L (0.7-2.1)
[2021-10-16] MEDS: LACTATED RINGERS 1,000 ML 100 ML IV (23:39)
[2021-10-17] VITALS (11 sets, daily range): BP systolic 120–172; BP diastolic 60–83; PULSE 84–105; RESP 16–20; TEMP 36.4–38.3; O2SAT 87–94
[2021-10-17] MEDS: OXYCODONE IR 10 MG TABLET PO (00:52)
[2021-10-17] MEDS: MORPHINE 2 MG/ML INJ IV (02:30)
[2021-10-17] MEDS: LORazepam 2 MG/ML INJ 1 MG IV ×2 (02:57→10:01)
[2021-10-17] MEDS: PIPERACILLIN/TAZO 3.375 GM in SODIUM CHLORIDE 0.9% 100 ML 25 ML IV ×3 (03:54→19:01)
[2021-10-17] MEDS: MORPHINE 4 MG/ML INJ IV ×2 (04:49→08:48)
--- NOTE | 2021-10-17 05:08 | DI.RAD.S_ITS ---
PROCEDURE: XR ABDOMEN 1V INDICATIONS: free air TECHNIQUE: One view of the abdomen acquired. COMPARISON: [facility], CT, CT ABDOMEN PELVIS W CON, 10/16/2021, 19:20. FINDINGS: No evidence of pneumoperitoneum. IMPRESSION: No evidence of pneumoperitoneum. Dictated by: Wicho Chong M.D. on 10/17/2021 at 8:32 Approved by: Wicho Chong M.D. on 10/17/2021 at 8:33
[2021-10-17] MEDS: ONDANSETRON 4 MG/2 ML INJ IV ×2 (05:28→18:26)
[2021-10-17 07:32] LABS: Add Manual Diff / Slide Review NO; Basophils Absolute Auto 100 /uL (0-100); Basophils Percent Auto 0.5 % (0-2); Eosinophils Absolute Auto 0 /uL (0-450); Hematocrit 40.9 % (41-53); Hemoglobin 13.7 g/dL (13.5-17.5); Lymphocytes Absolute Auto 2000 /uL (1100-4500); Lymphocytes Percent Auto 8.9 % (25-40); Mean Corpuscular HGB Conc 33.5 % (30-36); Mean Corpuscular Hemoglobin 30.2 PG (26-34); Mean Corpuscular Volume 89.9 fL (80-100); Monocytes Absolute Auto 1000 /uL (0-900); Monocytes Percent Auto 4.4 % (3-14); Neutrophils Absolute Auto 19800 /uL (1500-7000); Neutrophils Percent Auto 86.2 % (50-75); Platelet Count 229 X10^3/uL (150-400); Red Blood Cell Count 4.55 X10^6/uL (4.5-5.9); Red Cell Distribution Width 13.5 % (11.6-14.8)
[2021-10-17 07:41] LABS: Alanine Aminotransferase 14 IU/L (<50); Albumin 3.9 g/dL (3.5-5.0); Albumin Globulin Ratio 1.3 (1.0-2.8); Alkaline Phosphatase 57 U/L (38-126); Aspartate Aminotransferase 19 IU/L (17-59); Bilirubin Total 0.7 mg/dL (0.2-1.3); Blood Urea Nitrogen 17 mg/dL (9-20); Calcium 8.8 mg/dL (8.4-10.2); Carbon Dioxide 23 mmol/L (22-32); Chloride 106 mmol/L (98-107); Estimated Glomerular Filt Rate > 60.0 mL/min (>60); Globulin 2.9 g/dL (1.7-4.1); Glucose 130 mg/dL (80-110); HEMOLYSIS < 15 (0-50); Lipase 79 U/L (23-300); Potassium 4.2 mmol/L (3.4-5.1); Sodium 136 mmol/L (137-145); Total Protein 6.8 g/dL (6.3-8.2)
[2021-10-17 08:00] LABS: NT-proBNP (BNP-Adult 18+) 369 pg/mL (<125)
--- NOTE | 2021-10-17 08:47 | PM.HP.1 ---
History of Present Illness History of Present Illness Date Patient Seen: 10/17/21 Time Patient Seen: 08:50 Date of Onset of Symptoms: 10/16/21 Chief complaint: chest/abd pain/vomiting x1 day Narrative: Describes a day of epigastric discomfort follow by a sudden worsening with 10/10 pain epigastric and chest. Nausea and emesis, with fevers. WBC 21,[address] scan to my read of perforated duodenum (likely ulcer), duodenitis. No abscess or significant free air to suggest a contained perforation. Patient History Medical History Arthritis Comment: Cardiac history of stent last year hypertension Family & Social History Social History: household members none Prior Living Arrangements House Safety & Behavioral: Feels Safe in Current Yes Environment Been Physically Hurt or No Threatened By a Person Suicidal Ideation Description None Suicide Plan Description No Plan Tobacco & Substance use: Tobacco type cigarettes Smoking Status Former smoker alcohol intake former alcohol intake frequency 0-2 drinks per day Substance Use Type does not use Meds Home Medications and Allergies Home Medications Medication Instructions Recorded Confirmed Type amlodipine 10 mg tablet 10 mg PO QAM 03/29/21 03/29/21 History aspirin 81 mg tablet 81 mg PO BEDTIME 03/29/21 03/29/21 History losartan 100 mg tablet 100 mg PO BEDTIME 03/29/21 03/29/21 History Allergies Allergy/AdvReac Type Severity Reaction Status Date / Time No Known Drug Allergies Allergy Verified 03/29/21 11:03 Review of Systems Review of Systems ROS: Yes All systems reviewed with the patient and are negative except as otherwise documented Exam Vital Signs (past 8 hours): - 10/17/21 02:00 10/17/21 02:50 10/17/21 04:33 Temperature 100.9 F H 99.3 F Pulse Rate 86 105 H 105 H Respiratory Rate 16 16 16 Blood Pressure 154/69 H 172/83 H Pulse Oximetry 92 91 91 10/17/21 04:58 10/17/21 08:00 Temperature 99.5 F 97.6 F Pulse Rate 95 H 94 H Respiratory Rate 20 18 Blood Pressure 152/77 H 131/67 Pulse Oximetry 93 92 Oxygen Delivery Method Nasal Cannula Oxygen Flow Rate 3 Const General: cooperative and acute distress Nutritional Appearance: average body habitus Orientation: alert and oriented x3 HENMT Head: normocephalic and atraumatic Eyes General: appearance normal, both eyes and all related structures Sclera: sclerae normal Neck Neck: trachea midline Chest Chest: normal inspection of the chest Resp Effort & Inspection: normal respiratory effort and able to speak in complete sentences Cardio Rate: tachycardic Rhythm: regular rhythm GI Palpation: guarding and tender Other: Acute abdomen, no free air to suggest advancement of perforation on Xray this morning. Skin General: no rashes or lesions noted and dry skin Neuro General: no focal motor deficits Cognition: normal cognition Extrem General: full ROM Psych Mental Status: mental status grossly normal Judgment: judgment good Objective Labs Result Diagrams: 10/17/21 06:59 10/17/21 06:59 Labs: Laboratory Results - last 24 hr 10/16/21 10/16/21 10/16/21 18:40 18:40 18:40 WBC 21.9 H RBC 4.86 Hgb 15.0 Hct 43.6 MCV 89.8 MCH 31.0 MCHC 34.5 RDW 13.2 Plt Count 340 Neut % (Auto) 60.9 Lymph % (Auto) 24.6 L [place] % (Auto) 6.6 Eos % (Auto) 6.7 H Baso % (Auto) 1.2 Neut # (Auto) 31960 H Lymph # (Auto) 5400 H [place] # (Auto) 1400 H Eos # (Auto) 1500 H Baso # (Auto) 300 H Sodium 137 Potassium 3.7 Chloride 101 Carbon Dioxide 24 BUN 20 Creatinine 1.30 H Estimated GFR 54.7 L BUN/Creatinine Ratio 15.4 Glucose 148 H Lactate 3.8 H Calcium 10.0 Magnesium 1.9 Total Bilirubin 0.7 AST 25 ALT 18 Alkaline Phosphatase 95 Total Creatine Kinase 89 CK-MB (CK-2) TNP CK-MB (CK-2) Rel Index TNP Troponin I 0.028 NT-Pro-B Natriuret Pep Total Protein 8.6 H Albumin 4.9 Globulin 3.7 Albumin/Globulin Ratio 1.3 Lipase 396 H SARS-CoV-2 (PCR) 10/16/21 10/16/21 10/17/21 20:30 22:50 06:59 WBC 23.0 H RBC 4.55 Hgb 13.7 Hct 40.9 L MCV 89.9 MCH 30.2 MCHC 33.5 RDW 13.5 Plt Count 229 Neut % (Auto) 86.2 H D Lymph % (Auto) 8.9 L [place] % (Auto) 4.4 Eos % (Auto) 0.0 L Baso % (Auto) 0.5 Neut # (Auto) 61567 H Lymph # (Auto) 2000 [place] # (Auto) 1000 H Eos # (Auto) 0 Baso # (Auto) 100 Sodium Potassium Chloride Carbon Dioxide BUN Creatinine Estimated GFR BUN/Creatinine Ratio Glucose Lactate 1.8 Calcium Magnesium Total Bilirubin AST ALT Alkaline Phosphatase Total Creatine Kinase CK-MB (CK-2) CK-MB (CK-2) Rel Index Troponin I NT-Pro-B Natriuret Pep Total Protein Albumin Globulin Albumin/Globulin Ratio Lipase SARS-CoV-2 (PCR) Negative 10/17/21 10/17/21 06:59 06:59 WBC RBC Hgb Hct MCV MCH MCHC RDW Plt Count Neut % (Auto) Lymph % (Auto) [place] % (Auto) Eos % (Auto) Baso % (Auto) Neut # (Auto) Lymph # (Auto) [place] # (Auto) Eos # (Auto) Baso # (Auto) Sodium 136 L Potassium 4.2 Chloride 106 Carbon Dioxide 23 BUN 17 Creatinine 1.06 Estimated GFR > 60.0 BUN/Creatinine Ratio 16.0 Glucose 130 H Lactate Calcium 8.8 Magnesium Total Bilirubin 0.7 AST 19 ALT 14 Alkaline Phosphatase 57 Total Creatine Kinase CK-MB (CK-2) CK-MB (CK-2) Rel Index Troponin I NT-Pro-B Natriuret Pep 369 H Total Protein 6.8 Albumin 3.9 Globulin 2.9 Albumin/Globulin Ratio 1.3 Lipase 79 D SARS-CoV-2 (PCR) Assessment & Plan Assessment & Plan narrative: Contained perforated duodenum and duodenitis suggesting PUD. Remains very tender with some improvement. Reports he has high tolerance of pain meds. Avoiding NSAIDS at this time. Plan: serial exams with plans for Xlap vs repeat CTscan if not improving by this evening. Medical management of bowel rest and PPI for now. Zosyn with fluconazole and IV fluids. COVID-19 COVID-19 status: Negative Result date/Date tested (Pos, Neg/Pending): 10/16/21 Time Spent With Patient Time with patient: 50 to 69 minutes with 50% spent counseling/coordinating care Critical Care time: I spent a total of [] minutes of critical care time on this patient's care today; this time is exclusive of procedural time. Quality VTE Deep Vein Thrombosis/Pulmonary Embolism Present on Admission: No
[2021-10-17] MEDS: PANTOPRAZOLE 40 MG VIAL IV ×2 (08:48→20:21)
[2021-10-17] MEDS: LOSARTAN 50 MG TABLET 100 MG PO (08:54)
[2021-10-17] MEDS: AMLODIPINE 5 MG TABLET PO (08:54)
[2021-10-17] MEDS: ENOXAPARIN 40 MG/0.4 ML SYRINGE SUBCUT (09:00)
[2021-10-17] MEDS: FLUCONAZOLE 200 MG/100 ML PIGGYBACK 100 MG IV (09:36)
[2021-10-17] MEDS: OXYCODONE IR 10 MG TABLET 20 MG PO ×4 (09:57→22:36)
[2021-10-17] MEDS: LACTATED RINGERS 1,000 ML 100 ML IV ×2 (11:46→21:50)
--- NOTE | 2021-10-17 14:27 | CM.IDA ---
Initial DCP Assessment Note Pt is a 70 yo male, resident of [place], arrives w/abd pain and vomiting, surgery consulted and there is a suspected perforated ulcer per discussion w/RN Rebecca. Patient currently receiving conservative treatment to include IV abx and pain management, along with bowel rest PCP: Krissy Figueroa Payer: [employer] Met w/patient and his dtr Kristina, introduced role. Patient very sleepy and dozing on/off, gives this WOOD EXPERIMENTAL MECHANIC permission to speak w/his dtr for DCP assessment Patient lives alone in [place] dtr Kristina and grand dtr Jacquie live near. Patient drives, is indp and active at baseline. Dtr Kristina suggests that patient can DC to her house vs she assist him at his, as needed. No needs anticipated from this WOOD EXPERIMENTAL MECHANIC Plan: DC likely home w/family to assist as needed. CM team will follow closely in case any DC needs or concerns arise ODALIS [place] Discharge Planning/Care Management CM Discharge Assessment Start: 10/17/21 14:15 Freq: Status: Active Protocol: Document 10/17/21 14:15 [email or web address] (Rec: 10/17/21 14:27 [email or web address] [id number]) Discharge Planning Assessment Assigned Medical Staff Credentialing Coordinator ODALIS Vallejo DPOA/Assigned Designee Name Kristina Qureshi dtr ([place] Contact Information [phone] Advance Directives? Yes Advance Directives on File No History Provided By Patient,Family Member,Medical Record Prior Living Arrangements House Household Members none Type of transporation used prior to Drives own vehicle admit Independent with ADL's Yes Is patient alert and oriented? Yes Barriers to Discharge No Comment Patient wants to return home, has supportive family to assist as needed Discharge Plan Home Transportation Arrangement Family Additional Comment DCP pending how medical POC unfolds Comment Care Mngmt contact info left
--- NOTE | 2021-10-17 18:12 | PC.NURSE ---
Pt recieved lying in bed resting. He is able to take po pills this a.m. and denies n/v. With movement his pain is elevated in his abdomen and he reports extreme pain 9-10/10. MD Pena at bedside evaluating patient this morning and increases morphine doses and Oxcodone doses. He is given medications with adequate pain control as well as x1 dose ativan with good effect. He is able to rest throughout the day easily awakened and pain appears to be managed with prn oxycodone.He has one episode of dry heaves but no emesis, zofran IV scheduled given this evening. He is tolerating zosyn and flucanozole well. IVF LR running at 125ml/hr. Plan for repeat labs, bowel rest and per MD Pena possible repeat CT scan tomorrow.
[2021-10-17] MEDS: MORPHINE 2 MG/ML INJ 6 MG IV (18:28)
[2021-10-18] VITALS (35 sets, daily range): BP systolic 101–158; BP diastolic 50–73; PULSE 83–95; RESP 7–97; TEMP 36.1–37.3; O2SAT 7–100
[2021-10-18] MEDS: ONDANSETRON 4 MG/2 ML INJ IV ×2 (00:18→05:28)
[2021-10-18] MEDS: PIPERACILLIN/TAZO 3.375 GM in SODIUM CHLORIDE 0.9% 100 ML 25 ML IV ×3 (03:39→20:21)
--- NOTE | 2021-10-18 04:30 | PC.NURSE ---
Shift Note: Patient was alert and orientedx4, stated tolerable abdominal pain, due pain meds given, on O2 support by nasal cannula at 3lpm with O2 sat >92%. Afebrile, vital signs within acceptable limits. Kept patient NPO except meds. No signs of cardiorespiratory distress. IV access x2 at right arm with LR at 100mls/hr. Patient uses urinal with adequate urine output.
[2021-10-18] MEDS: MORPHINE 2 MG/ML INJ 6 MG IV ×3 (05:28→21:13)
[2021-10-18 07:44] LABS: Add Manual Diff / Slide Review NO; Basophils Absolute Auto 0 /uL (0-100); Basophils Percent Auto 0.2 % (0-2); Eosinophils Absolute Auto 0 /uL (0-450); Eosinophils Percent Auto 0.2 % (2-4); Hematocrit 38.1 % (41-53); Hemoglobin 12.7 g/dL (13.5-17.5); Lymphocytes Absolute Auto 1300 /uL (1100-4500); Lymphocytes Percent Auto 5.5 % (25-40); Mean Corpuscular HGB Conc 33.4 % (30-36); Mean Corpuscular Hemoglobin 30.5 PG (26-34); Mean Corpuscular Volume 91.2 fL (80-100); Monocytes Absolute Auto 1500 /uL (0-900); Monocytes Percent Auto 6.2 % (3-14); Neutrophils Absolute Auto 21400 /uL (1500-7000); Neutrophils Percent Auto 87.9 % (50-75); Platelet Count 196 X10^3/uL (150-400); Red Blood Cell Count 4.17 X10^6/uL (4.5-5.9); Red Cell Distribution Width 13.5 % (11.6-14.8); White Blood Cell Count 24.3 X10^3/uL (4.5-11.0)
[2021-10-18 08:04] LABS: Alanine Aminotransferase 12 IU/L (<50); Albumin 3.4 g/dL (3.5-5.0); Albumin Globulin Ratio 1.2 (1.0-2.8); Alkaline Phosphatase 52 U/L (38-126); Aspartate Aminotransferase 21 IU/L (17-59); BUN Creatinine Ratio 21.4 (6-22); Bilirubin Total 0.8 mg/dL (0.2-1.3); Blood Urea Nitrogen 34 mg/dL (9-20); Calcium 8.3 mg/dL (8.4-10.2); Carbon Dioxide 26 mmol/L (22-32); Chloride 104 mmol/L (98-107); Estimated Glomerular Filt Rate 43.4 mL/min (>60); Globulin 2.8 g/dL (1.7-4.1); Glucose 126 mg/dL (80-110); HEMOLYSIS < 15 (0-50); Potassium 4.3 mmol/L (3.4-5.1); Sodium 135 mmol/L (137-145); Total Protein 6.2 g/dL (6.3-8.2)
[2021-10-18] MEDS: LOSARTAN 50 MG TABLET 100 MG PO (09:14)
[2021-10-18] MEDS: AMLODIPINE 5 MG TABLET PO (09:15)
[2021-10-18] MEDS: FLUCONAZOLE 200 MG/100 ML PIGGYBACK 100 MG IV (09:15)
[2021-10-18] MEDS: OXYCODONE IR 10 MG TABLET 20 MG PO (09:15)
[2021-10-18] MEDS: PANTOPRAZOLE 40 MG VIAL IV ×2 (09:15→20:21)
[2021-10-18] MEDS: ENOXAPARIN 40 MG/0.4 ML SYRINGE SUBCUT (09:15)
--- NOTE | 2021-10-18 10:28 | DI.CT.S_ITS ---
PROCEDURE: CT ABDOMEN PELVIS W CON INDICATIONS: duodenal perf leak TECHNIQUE: After the administration of oral and IV contrast, axial sections were acquired from the lung bases to the pubic symphysis. Coronal and sagittal reformats were performed. For radiation dose reduction, the following was used: automated exposure control, adjustment of mA and/or kV according to patient size. COMPARISON: [facility], CT, CT ABDOMEN PELVIS W CON, 10/16/2021, 19:20. FINDINGS: Image quality: Excellent. Lung bases: Small right and trace left pleural effusions are seen with atelectasis of the lung bases. These are new when compared to the prior exam. Heart: No significant findings. ABDOMEN: Liver: The liver is mildly hypoattenuating, likely due to fatty infiltration. Gallbladder: Vicarious excretion of contrast material is seen within the gallbladder. Biliary ducts: Unremarkable. Pancreas: Unremarkable. Spleen: Coarse calcifications in the spleen are most likely related to prior granulomatous disease. Adrenal Glands: Unremarkable. Kidneys and Ureters: Bilateral renal cyst. Right perinephric fat stranding is most likely reactive. No hydronephrosis. Stomach and Bowel: Bowel wall thickening is again seen in the 1st and 2nd portions of the duodenum with adjacent free fluid and pneumoperitoneum, which have increased when compared to the exam from 10/16/2021. Delayed images demonstrate focal extravasation of oral contrast material at the junction of the 1st and 2nd portions of the duodenum (images 38-39 of the delayed series 2, and image 33 of the delayed series 3), consistent with perforating duodenal ulcer. Diverticula are again seen in the sigmoid colon without signs of acute diverticulitis. No signs of small bowel obstruction. Small hiatal hernia. Peritoneum: Small amount of free fluid is seen predominantly in the perihepatic region, but also along the pericolic gutter and pelvis, which has increased when compared to the prior exam. Small amount of pneumoperitoneum has also increased when compared to the prior exam. Ventral Wall: No hernia. Abdominal Nodes: No retroperitoneal or mesenteric adenopathy by size criteria. Vessels: Severe calcified and noncalcified atherosclerotic plaque within the distal abdominal aorta and common iliac arteries. IVC is normal in size. PELVIS: Pelvic Organs: Unremarkable. Bladder: Unremarkable. Pelvic Nodes: No enlarged lymph nodes. Miscellaneous: No inguinal hernias are seen. Left spermatic cord lipoma again noted. Bones: Degenerative changes are seen in the included spine and at the sacroiliac joints. IMPRESSION: 1. Focal duodenal perforation of the junction of the 1st and 2nd portions with extravasation of oral contrast material on delayed images. Surrounding duodenal wall thickening and inflammation is seen. Small amount of free fluid and pneumoperitoneum have increased when compared to the prior exam. 2. Small right pleural effusion and trace left pleural effusion are new when compared to the prior CT, with associated atelectasis of the lung bases. Findings were discussed with the referring physician, Dr. Pena, by telephone on 10/18/2021 at 11:11 AM. Dictated by: Dexter Kwok M.D. on 10/18/2021 at 11:12 Approved by: Dexter Kwok M.D. on 10/18/2021 at 11:25
--- NOTE | 2021-10-18 11:20 | PM.PREOP ---
Pre-operative Note COVID-19 COVID-19 status: Negative Interval Note History & Physical reviewed/Exam performed by Physician: Yes Changes to H&P: Yes H&P completed within 30 days and has changed as indicated here:: repeat CT scan shows persistent leak at duodenal ulcer and fluid collections. WBC is persistent elevated.
[2021-10-18] MEDS: LACTATED RINGERS 1,000 ML 100 ML IV ×2 (13:00→14:16)
--- NOTE | 2021-10-18 13:37 | SUR.OPER ---
Supine on padded OR bed, head on pillow, arms secured on padded arm boards at <90 degrees abduction, legs uncrossed, safety belt at thigh, tape over blanket over lower legs.
--- NOTE | 2021-10-18 14:03 | PM.PROC.1 ---
Procedures Date/Time Date of procedure: 10/18/21 Time of procedure: 13:05 Central Line Placement Time out performed: Yes Patient placed on monitor/pulse ox: Yes MD prep: mask, gown and gloves Central line prep: Chlorhexidine scrub and sterile drapes applied Local anesthesia used: other anesthetic (general anesthesia in OR) Ultrasound used for placement: Yes Central line lumen inserted: triple Post procedure: sutured in place, good blood return, all ports aspirated, flushed, capped and sterile dressing applied Post procedure x-ray: other (ordered for post-op) Patient tolerated procedure: well Complications: none
--- NOTE | 2021-10-18 15:10 | PM.OP.1 ---
Operative Date/Time/Diagnoses Date of procedure: 10/18/21 Time of procedure: 15:11 Pre-op diagnosis: Perforated duodenal ulcer Post-op diagnosis: same Procedure & Clinicians Procedure: Exploratory laparotomy with over-sew of duodenal ulcer and Luis patch Same procedure as scheduled: Yes Indications: Perforated duodenal ulcer with ongoing leak Surgeon: Josefa Pena Click Yes if Unassisted: Yes Anesthesia Type: General Operative Notes Findings: Perforated duodenal ulcer Closure Type: primary Specimen(s): none sent Applied: drain(s) (15 Uday drain x2) Estimated Blood Loss (mL): 20 Blood products transfused: none Procedure in detail: Prep diagnosis: Perforated duodenal ulcer Postop diagnosis: Same Operative procedure: Exploratory laparotomy with over-sew of duodenal ulcer and Luis patch Surgeon: Diana Pena MD Anesthetic: General with ET tube intubation Findings: Small perforation in the 2nd portion duodenum. Procedure: Patient placed in a supine position. Prepped and draped sterile fashion as was the abdomen. Super umbilical midline incision was created using electrocautery an open technique. I then began with irrigation and evacuation of known pockets of fluid seen on CT so as not to further contaminate. I then mobilized the right upper quadrant taking down attachments to the gallbladder to expose the area of the duodenum with approximately a 1 cm perforation, no bleeding. 2-0 Vicryl was used for running initial closure. Oversewn with interrupted 3-0 nylon. A Luis patch was mobilized over the repair and sutured in place with 3-0 nylon. Drains were strategically placed with the right-sided drain going along the gutter of the liver over the dome. And the left-sided drain going into the site of the repair and along the lower edge of the liver. Abdomen was irrigated to a clear return. Fascia was closed with a running looped 0 PDS. Skin was closed after irrigation with a surgical staple closure. During the procedure right IJ central line was placed for anticipated TPN as well as an NG tube for continuous decompression of the stomach. Davison catheter also in place. Specimen: None Blood loss: 20 mL
[2021-10-18] MEDS: ALBUTEROL 2.5 MG/3 ML NEB (ADULT) INH (15:20)
--- NOTE | 2021-10-18 15:20 | DI.RAD.S_ITS ---
PROCEDURE: XR CHEST 1V INDICATIONS: new right IJ central line. New NGT TECHNIQUE: One view of the chest was acquired. COMPARISON: [facility], CR, XR CHEST 1V, 10/16/2021, 19:00. FINDINGS: Surgical changes and devices: Right internal jugular central venous catheter tip is projecting in the region of SVC. NG tube tip is below the left hemidiaphragm and is in the expected location of stomach lumen. Lungs and pleura: Pulmonary vascular congestion is seen. Ill-defined airspace opacities are noted in bilateral perihilar region and lower lung ehrnandez concerning for bilateral patchy infiltrates. pleural effusions or pneumothorax. Mediastinum: Mediastinal contours appear normal. Heart size is enlarged. Bones and chest wall: No suspicious bony lesions. Overlying soft tissues appear unremarkable. IMPRESSION: Right internal jugular central venous catheter and NG tube are in satisfactory position. Airspace opacities in bilateral perihilar region and bilateral lower lung hernandez concerning for bilateral patchy infiltrates. No gross pneumothorax. Dictated by: Dheeraj Jacobo M.D. on 10/18/2021 at 15:43 Approved by: Dheeraj Jacobo M.D. on 10/18/2021 at 15:44
--- NOTE | 2021-10-18 15:21 | SUR.PHASEI ---
Dr Pena notified of low O2 Sat and Albuterol being given at this time. CXR ordered by .
--- NOTE | 2021-10-18 15:30 | SUR.PHASEI ---
Pt to PACU with anesth Dr Sahu. Pt with Oral airway, chin lift done and oral suction, o2 at 10 L face mask. NGT to LIWS. Oxygen increased to 15L simple mask at 1511 for o2 Sat 88%, non-breather placed and Albuterol nebulizer given via mask. Chest XR done at [address] Sahu to bedside at 1532 and updated on patient care. No new orders. oral Airway our a [id number]. Pt able to cough, oral suction done. 1545. Pt awake, dozing and talking, following commands.
--- NOTE | 2021-10-18 16:05 | SUR.PHASEI ---
Dr Sahu at bedside. Pt with slight crackles in bases and coarse cough. See new order for IV Lasix.
--- NOTE | 2021-10-18 16:16 | SUR.PHASEI ---
Dr Pena notified by Mark Nielsen with this RN present that patient remains on 15L non-rebreather at 91-92%, coarse cough, Incentive spirometer done with encouragement. Pt with fine crackles in bases, 20mg Lasix ordered by Dr Sahu. ordered ICU status.
[2021-10-18] MEDS: FUROSEMIDE 40 MG/4 ML VIAL 20 MG IV (16:21)
--- NOTE | 2021-10-18 17:21 | PC.NURSE ---
Addendum entered by Teresa Carrillo R.N. 10/18/21 19:22: R&L LYRIC drains draining serious fluid, see chart for amounts, RIJ central line dressing has old blood drainage from PACU, NG tube connected to LIS, Tele sugar boiler examined pt via monitor in the room, pt notes pain 4/10 after medication with 4mg Morphine. No further needs at this time, bed low and locked, call light within reach, will continue to treat and monitor as ordered. Original Note: Shift note: Pt arrived via bed from PACU, slide board to new ICU bed, connected to monitoring equipment, pt rouses to voice, able to answer questions, 15L non-rebreather SpO2 88-91%, drainage on midline dressing marked with sharpie, significant amount of drainage noted, Tele sugar boiler Dr Lancaster contacted by phone, updated on pt status, new orders received. Pt oriented to room and call light system, daughter at bedside. Will continue to treat and monitor as ordered.
--- NOTE | 2021-10-18 17:25 | PC.NURSE ---
Pt resting this a.m. VSS, afebrile on 3 LNC. He has diminished lung sounds throughout. He reports pain minimal but climbing and medicated with scheduled am medications and 10 mg oxycodone PRN. He denies nausea. BS hypoactive and abdomen tender, distended. MD Pena at bedside this am. ordering CT scan, and arranges pt to go to surgery for wash out.He still c/o pain to abdomen not improving and is given the additional 10 mg of prn oxycodone with good effect. Pt's daughter Kristina at bedside when he is taken to preop. He is transported via bed at noon.
--- NOTE | 2021-10-18 17:33 | SUR.PHASEI ---
[id number] Patient transferred to ICU room 226 by Mark RODRÍGUEZ in bed on quality assurance monitor body on 15L non-rebreather. Pt awake, alert, pink and talking. NGT clamped for transfer. Small amt of drainage out during PACU. Davison draining with urine turning television presenter yellow after lasix. Abdominal dressing with small amt of drainage marked, LYRIC x 2 with serosang drainage. IJ central line intact, flushed with NS. IVF infusion stopped. Pt daughter updated by Mark RODRÍGUEZ.
[2021-10-18] MEDS: LACTATED RINGERS 1,000 ML 125 ML IV (17:43)
[2021-10-18 17:49] LABS: Triglycerides 96 mg/dL (35-150)
[2021-10-18 17:56] LABS: Prealbumin 11.1 mg/dL (17.6-36.0)
[2021-10-18 17:58] LABS: HCO3 ABG 24 mmol/L (22-26); Oxygen Saturation ABG 89 % (95-100); PCO2 ABG 45.9 mmHg (35-45); PO2 ABG 61 mmHg (80-100); TCO2 ABG 26 mmol/L (21-31); pH ABG 7.33 (7.35-7.45)
--- NOTE | 2021-10-18 18:06 | P.TELICUCN_ITS ---
History of Present Illness Consult details Chief complaint: chest/abd pain/vomiting x1 day :: This patient was seen in the Intensive Care Unit via real time interactive two- way audiovisual telecommunication. Narrative: 70 y.o. w/ distant hx of CAD PCI (~ 13 yrs ago) POD#0 from Luis patch/oversewing of perforated duodenal ulcer. Hypoxic in PACU requiring 15 L/min NRB. Given Lasix 20 mg in PACU-->ICU. In ICU, O2 down to 13. ABG on this: 7.33/45.9/61/24/89%. On Zosyn/fluconazole. 2020 2-D echo normal. No history of antecedent COPD/asthma or any pulmonary problems. [facility] Medical History Arthritis Social History household members: none Smoking Status: Former smoker alcohol intake: former Current Medications Current Medications Medications: Home Medications amlodipine 10 mg tablet 10 mg PO QAM 03/29/21 [History Confirmed 10/17/21] aspirin 81 mg tablet 81 mg PO BEDTIME 03/29/21 [History Confirmed 10/17/21] losartan 100 mg tablet 100 mg PO BEDTIME 03/29/21 [History Confirmed 10/17/21] atorvastatin 80 mg PO BEDTIME 10/17/21 [History Confirmed 10/17/21] fenofibrate 54 mg tablet 54 mg PO DAILY 10/17/21 [History Confirmed 10/17/21] Visit Medications (administered) Generic Name Dose Route Start Last Admin Trade Name Fabianq PRN Reason Stop Dose Admin Enoxaparin Sodium 40 mg 10/17/21 09:00 10/18/21 09:15 Enoxaparin 40 Mg/0.4 Ml Syringe SUBCUT 40 mg DAILY KELIN Administration Lactated Ringer's 1,000 mls @ 125 mls/hr 10/16/21 20:00 10/18/21 17:43 Lactated Ringers IV 125 mls/hr CONT KELIN Administration Piperacillin Sod/Tazobactam 100 mls @ 25 mls/hr 10/16/21 20:00 10/18/21 14:00 Sod 3.375 gm/ Sodium Chloride IV Infused Q8H KELIN Infusion Fluconazole 200 mg in 100 mls @ 100 mls/hr 10/17/21 09:30 10/18/21 09:15 Diflucan IV 100 mls/hr 0900 KELIN Administration Lorazepam 1 mg 10/17/21 02:49 10/17/21 10:01 Lorazepam 2 Mg/Ml Inj IV 1 mg Q4HR PRN Administration Cramping Losartan Potassium 100 mg 10/17/21 09:00 10/18/21 09:14 Losartan 50 Mg Tablet PO 100 mg DAILY KELIN Administration Morphine Sulfate 6 mg 10/17/21 08:55 10/18/21 17:44 Morphine 2 Mg/Ml Inj IV 4 mg Q4HR PRN Administration Pain, Severe (7-10) Ondansetron HCl 4 mg 10/17/21 00:00 10/18/21 12:30 Ondansetron 4 Mg/2 Ml Inj IV Not Given Q6HR KELIN Oxycodone HCl 20 mg 10/17/21 08:49 10/18/21 09:15 Oxycodone Ir 10 Mg Tablet PO 20 mg Q3HR PRN Administration Pain, Severe (7-10) Pantoprazole Sodium 40 mg 10/16/21 21:00 10/18/21 09:15 Pantoprazole 40 Mg Vial IV 40 mg BID KELIN Administration Review of Systems Cardiovascular Cardiovascular: Reports other (no angina) Respiratory Respiratory: Reports other (no wheezing/stridor) Exam Vital Signs (past 8 hours): - 10/18/21 11:00 10/18/21 12:34 10/18/21 15:03 Temperature 98.0 F 98.0 F 98.0 F Pulse Rate 85 85 90 Respiratory Rate 18 16 10 L Blood Pressure 118/54 L 136/63 111/52 L Pulse Oximetry 90 L 93 90 L 10/18/21 15:08 10/18/21 15:13 10/18/21 15:18 Temperature 98.7 F Pulse Rate 87 89 91 H Respiratory Rate 97 H 89 H 12 Blood Pressure 101/52 L 101/55 L 110/50 L Pulse Oximetry 8 L 7 L 91 10/18/21 15:23 10/18/21 15:28 10/18/21 15:33 Temperature 99.1 F Pulse Rate 92 H 92 H 94 H Respiratory Rate 7 L 12 9 L Blood Pressure 110/57 L 115/61 111/54 L Pulse Oximetry 89 L 89 L 90 L 10/18/21 15:38 10/18/21 15:43 10/18/21 15:48 Temperature Pulse Rate 95 H 90 95 H Respiratory Rate 9 L 12 11 L Blood Pressure 117/57 L 117/64 109/61 Pulse Oximetry 89 L 90 L 100 10/18/21 15:53 10/18/21 16:08 10/18/21 16:23 Temperature 98.4 F Pulse Rate 90 95 H 87 Respiratory Rate 11 L 11 L 12 Blood Pressure 117/64 106/61 128/53 L Pulse Oximetry 90 L 90 L 90 L 10/18/21 16:33 Temperature 98.2 F Pulse Rate 95 H Respiratory Rate 18 Blood Pressure 124/61 Pulse Oximetry 90 L Oxygen Delivery Method Non -Rebreather Oxygen Flow Rate 15 Resp Effort & Inspection: normal respiratory effort and able to speak in complete sentences Other: Saturating 92-93% on 13 L Objective Labs Result Diagrams: 10/18/21 07:16 10/18/21 07:16 Labs: Laboratory Results - last 24 hr 10/18/21 10/18/21 10/18/21 07:16 07:16 07:38 WBC 24.3 H RBC 4.17 L Hgb 12.7 L Hct 38.1 L MCV 91.2 MCH 30.5 MCHC 33.4 RDW 13.5 Plt Count 196 Neut % (Auto) 87.9 H Lymph % (Auto) 5.5 L [place] % (Auto) 6.2 Eos % (Auto) 0.2 L Baso % (Auto) 0.2 Neut # (Auto) 17412 H Lymph # (Auto) 1300 [place] # (Auto) 1500 H Eos # (Auto) 0 Baso # (Auto) 0 ABG pH ABG pCO2 ABG pO2 ABG HCO3 ABG Total CO2 ABG O2 Saturation ABG Base Excess FiO2 Sodium 135 L Potassium 4.3 Chloride 104 Carbon Dioxide 26 BUN 34 H Creatinine 1.59 H Estimated GFR 43.4 L BUN/Creatinine Ratio 21.4 Glucose 126 H Calcium 8.3 L Total Bilirubin 0.8 AST 21 ALT 12 Alkaline Phosphatase 52 Total Protein 6.2 L Albumin 3.4 L Globulin 2.8 Albumin/Globulin Ratio 1.2 Prealbumin 11.1 L Triglycerides 10/18/21 10/18/21 07:38 17:35 WBC RBC Hgb Hct MCV MCH MCHC RDW Plt Count Neut % (Auto) Lymph % (Auto) [place] % (Auto) Eos % (Auto) Baso % (Auto) Neut # (Auto) Lymph # (Auto) [place] # (Auto) Eos # (Auto) Baso # (Auto) ABG pH 7.33 L ABG pCO2 45.9 H ABG pO2 61 L ABG HCO3 24 ABG Total CO2 26 ABG O2 Saturation 89 L ABG Base Excess -2.0 FiO2 68 Sodium Potassium Chloride Carbon Dioxide BUN Creatinine Estimated GFR BUN/Creatinine Ratio Glucose Calcium Total Bilirubin AST ALT Alkaline Phosphatase Total Protein Albumin Globulin Albumin/Globulin Ratio Prealbumin Triglycerides 96 Assessment & Plan Assessment and plan (1) Postoperative respiratory distress: Problem details: Most likely due to combination of mild fluid overload and anesthesia. RT reports occasional hypopnea to 8 Status: Acute Plan: -Repeat Lasix 20 mg -Follow closely (2) Perforated duodenal ulcer: Status: Acute Plan: -BID PPI, Zosyn/fluconazole, TPN as per Dr. Pena
[2021-10-19] VITALS (37 sets, daily range): BP systolic 120–189; BP diastolic 58–120; PULSE 62–81; RESP 10–37; TEMP 36.7–37.1; O2SAT 90–96
[2021-10-19] MEDS: MORPHINE 2 MG/ML INJ 6 MG IV ×5 (00:50→20:03)
[2021-10-19] MEDS: PIPERACILLIN/TAZO 3.375 GM in SODIUM CHLORIDE 0.9% 100 ML 25 ML IV ×3 (03:55→20:00)
[2021-10-19] MEDS: LACTATED RINGERS 1,000 ML 125 ML IV (03:55)
--- NOTE | 2021-10-19 05:42 | PC.NURSE ---
0530- Patient has good pain control with MSO4 6mg every four hours. Lungs are dim/coarse posterior. Good uop. Left LYRIC bilious output 40cc, Right LYRIC Serous output 30cc. Patient tolerating NGT no measurable output. No nausea. Total IVF kept at 125 per hour. Midline dressing has shadow drainage which has not increased this shift. Will monitor closely.
[2021-10-19 08:42] LABS: Add Manual Diff / Slide Review NO; Basophils Absolute Auto 0 /uL (0-100); Basophils Percent Auto 0.2 % (0-2); Eosinophils Absolute Auto 0 /uL (0-450); Hematocrit 35.7 % (41-53); Hemoglobin 12.1 g/dL (13.5-17.5); Lymphocytes Absolute Auto 700 /uL (1100-4500); Lymphocytes Percent Auto 4.2 % (25-40); Mean Corpuscular HGB Conc 33.8 % (30-36); Mean Corpuscular Hemoglobin 30.6 PG (26-34); Mean Corpuscular Volume 90.4 fL (80-100); Monocytes Absolute Auto 700 /uL (0-900); Monocytes Percent Auto 4.3 % (3-14); Neutrophils Absolute Auto 15500 /uL (1500-7000); Neutrophils Percent Auto 91.3 % (50-75); Platelet Count 182 X10^3/uL (150-400); Red Blood Cell Count 3.94 X10^6/uL (4.5-5.9); Red Cell Distribution Width 13.5 % (11.6-14.8)
[2021-10-19 08:54] LABS: Alanine Aminotransferase 22 IU/L (<50); Albumin 3.1 g/dL (3.5-5.0); Alkaline Phosphatase 52 U/L (38-126); Aspartate Aminotransferase 28 IU/L (17-59); BUN Creatinine Ratio 19.6 (6-22); Bilirubin Total 0.5 mg/dL (0.2-1.3); Blood Urea Nitrogen 22 mg/dL (9-20); Calcium 8.4 mg/dL (8.4-10.2); Carbon Dioxide 28 mmol/L (22-32); Chloride 105 mmol/L (98-107); Estimated Glomerular Filt Rate > 60.0 mL/min (>60); Glucose 134 mg/dL (80-110); HEMOLYSIS < 15 (0-50); Phosphorous 2.3 mg/dL (2.3-3.7); Potassium 4.3 mmol/L (3.4-5.1); Sodium 138 mmol/L (137-145); Total Protein 6.1 g/dL (6.3-8.2)
[2021-10-19 08:55] LABS: Magnesium 2.2 mg/dL (1.6-2.3)
--- NOTE | 2021-10-19 09:15 | PM.PN.1 ---
Subjective Subjective Date Patient Seen: 10/19/21 Time Patient Seen: 09:15 Interval history: POD# 1 s/p Luis patch and oversew of perforated duodenal ulcer. C/o throat pain due to NGT. Hyperventilation and hypoxia improved but persistent. Awaiting labs. Improved hemodynamics. Exam Vital Signs (past 8 hours): - 10/19/21 03:00 10/19/21 03:05 10/19/21 03:30 Temperature Pulse Rate 77 78 74 Respiratory Rate 17 13 13 Blood Pressure 120/58 L 141/67 H Pulse Oximetry 92 92 92 10/19/21 04:00 10/19/21 04:30 10/19/21 05:00 Temperature Pulse Rate 78 73 77 Respiratory Rate 18 12 10 L Blood Pressure Pulse Oximetry 93 93 92 10/19/21 05:30 10/19/21 06:00 10/19/21 07:00 Temperature 98.1 F Pulse Rate 80 81 79 Respiratory Rate 11 L 21 24 Blood Pressure 134/64 Pulse Oximetry 93 92 90 L Oxygen Delivery Method High Flow Nasal Cannula Oxygen Flow Rate 6 Narrative Exam Narrative: Abdomen is soft, mild soiling of dressing. Left drain concerning of small ongoing bile leak vs contamination. toth in place. Objective Labs Result Diagrams: 10/19/21 08:25 10/19/21 08:25 Labs: Laboratory Results - last 24 hr 10/18/21 10/18/21 10/18/21 07:38 07:38 17:19 WBC RBC Hgb Hct MCV MCH MCHC RDW Plt Count Neut % (Auto) Lymph % (Auto) [place] % (Auto) Eos % (Auto) Baso % (Auto) Neut # (Auto) Lymph # (Auto) [place] # (Auto) Eos # (Auto) Baso # (Auto) ABG pH ABG pCO2 ABG pO2 ABG HCO3 ABG Total CO2 ABG O2 Saturation ABG Base Excess FiO2 Sodium Potassium Chloride Carbon Dioxide BUN Creatinine Estimated GFR BUN/Creatinine Ratio Glucose Calcium Phosphorus Magnesium Total Bilirubin AST ALT Alkaline Phosphatase Total Protein Albumin Globulin Albumin/Globulin Ratio Prealbumin 11.1 L Triglycerides 96 Nasal Screen MRSA (PCR) Negative for mrsa 10/18/21 10/19/21 10/19/21 17:35 08:25 08:25 WBC RBC Hgb Hct MCV MCH MCHC RDW Plt Count Neut % (Auto) Lymph % (Auto) [place] % (Auto) Eos % (Auto) Baso % (Auto) Neut # (Auto) Lymph # (Auto) [place] # (Auto) Eos # (Auto) Baso # (Auto) ABG pH 7.33 L ABG pCO2 45.9 H ABG pO2 61 L ABG HCO3 24 ABG Total CO2 26 ABG O2 Saturation 89 L ABG Base Excess -2.0 FiO2 68 Sodium 138 Potassium 4.3 Chloride 105 Carbon Dioxide 28 BUN 22 H Creatinine 1.12 Estimated GFR > 60.0 BUN/Creatinine Ratio 19.6 Glucose 134 H Calcium 8.4 Phosphorus 2.3 Magnesium 2.2 Total Bilirubin 0.5 AST 28 ALT 22 Alkaline Phosphatase 52 Total Protein 6.1 L Albumin 3.1 L Globulin 3.0 Albumin/Globulin Ratio 1.0 Prealbumin Triglycerides Nasal Screen MRSA (PCR) 10/19/21 08:25 WBC 17.0 H RBC 3.94 L Hgb 12.1 L Hct 35.7 L MCV 90.4 MCH 30.6 MCHC 33.8 RDW 13.5 Plt Count 182 Neut % (Auto) 91.3 H Lymph % (Auto) 4.2 L [place] % (Auto) 4.3 Eos % (Auto) 0.0 L Baso % (Auto) 0.2 Neut # (Auto) 82068 H Lymph # (Auto) 700 L [place] # (Auto) 700 Eos # (Auto) 0 Baso # (Auto) 0 ABG pH ABG pCO2 ABG pO2 ABG HCO3 ABG Total CO2 ABG O2 Saturation ABG Base Excess FiO2 Sodium Potassium Chloride Carbon Dioxide BUN Creatinine Estimated GFR BUN/Creatinine Ratio Glucose Calcium Phosphorus Magnesium Total Bilirubin AST ALT Alkaline Phosphatase Total Protein Albumin Globulin Albumin/Globulin Ratio Prealbumin Triglycerides Nasal Screen MRSA (PCR) [facility] Medical History Arthritis Social History household members: none Smoking Status: Former smoker alcohol intake: former Assessment & Plan Assessment & Plan narrative: POD# 1 for repair of duodenal perf and wash out. Stable except persistent hypoxia. Awaiting labs. Plan: NGT decompression Continue toth today to monitor urine output Continue IV antibiotics for contamination control. Leave in ICU until able to wean O2 Started Lovenox and continue BID IV PPI TPN to start today. Repeat CXR Time Spent With Patient Critical Care time: I spent a total of [] minutes of critical care time on this patient's care today; this time is exclusive of procedural time. Quality VTE Deep Vein Thrombosis/Pulmonary Embolism Present on Admission: No
--- NOTE | 2021-10-19 09:33 | P.TELICUPN_ITS ---
Subjective Subjective :: This patient was seen in the Intensive Care Unit via real time interactive two- way audiovisual telecommunication. No acute issues overnight. Patient is AAOX3. NGT is to low intermittent suction. Plan to start TPN today. On 3 liters NC. Current Medications Current Medications Medications: Home Medications amlodipine 10 mg tablet 10 mg PO QAM 03/29/21 [History Confirmed 10/17/21] aspirin 81 mg tablet 81 mg PO BEDTIME 03/29/21 [History Confirmed 10/17/21] losartan 100 mg tablet 100 mg PO BEDTIME 03/29/21 [History Confirmed 10/17/21] atorvastatin 80 mg PO BEDTIME 10/17/21 [History Confirmed 10/17/21] fenofibrate 54 mg tablet 54 mg PO DAILY 10/17/21 [History Confirmed 10/17/21] Visit Medications (administered) Generic Name Dose Route Start Last Admin Trade Name Freq PRN Reason Stop Dose Admin Atorvastatin Calcium 80 mg 10/18/21 21:00 10/18/21 20:22 Atorvastatin 20 Mg Tablet PO Not Given BEDTIME KELIN Enoxaparin Sodium 40 mg 10/17/21 09:00 10/18/21 09:15 Enoxaparin 40 Mg/0.4 Ml Syringe SUBCUT 40 mg DAILY KELIN Administration Piperacillin Sod/Tazobactam 100 mls @ 25 mls/hr 10/16/21 20:00 10/19/21 09:12 Sod 3.375 gm/ Sodium Chloride IV Infused Q8H KELIN Infusion Fluconazole 200 mg in 100 mls @ 100 mls/hr 10/17/21 09:30 10/18/21 19:31 Diflucan IV Infused 0900 KELIN Infusion Multivitamins 10 ml/ Chromium/ 1,011 mls @ 42.125 mls/hr 10/18/21 18:00 10/18/21 19:36 Copper/Manganese/Seleni/Zn 1 IV 10/19/21 17:59 Not Given ml/ Amino Acids/Electrolytes 1800 ONE Lorazepam 1 mg 10/17/21 02:49 10/17/21 10:01 Lorazepam 2 Mg/Ml Inj IV 1 mg Q4HR PRN Administration Cramping Losartan Potassium 100 mg 10/17/21 09:00 10/18/21 09:14 Losartan 50 Mg Tablet PO 100 mg DAILY KELIN Administration Morphine Sulfate 6 mg 10/17/21 08:55 10/19/21 04:56 Morphine 2 Mg/Ml Inj IV 6 mg Q4HR PRN Administration Pain, Severe (7-10) Ondansetron HCl 4 mg 10/17/21 00:00 10/19/21 05:23 Ondansetron 4 Mg/2 Ml Inj IV Not Given Q6HR KELIN Oxycodone HCl 20 mg 10/17/21 08:49 10/18/21 09:15 Oxycodone Ir 10 Mg Tablet PO 20 mg Q3HR PRN Administration Pain, Severe (7-10) Pantoprazole Sodium 40 mg 10/16/21 21:00 10/18/21 20:21 Pantoprazole 40 Mg Vial IV 40 mg BID KELIN Administration Objective Labs Result Diagrams: 10/19/21 08:25 10/19/21 08:25 Labs: Laboratory Results - last 24 hr 10/18/21 10/18/21 10/18/21 07:38 07:38 17:19 WBC RBC Hgb Hct MCV MCH MCHC RDW Plt Count Neut % (Auto) Lymph % (Auto) [place] % (Auto) Eos % (Auto) Baso % (Auto) Neut # (Auto) Lymph # (Auto) [place] # (Auto) Eos # (Auto) Baso # (Auto) ABG pH ABG pCO2 ABG pO2 ABG HCO3 ABG Total CO2 ABG O2 Saturation ABG Base Excess FiO2 Sodium Potassium Chloride Carbon Dioxide BUN Creatinine Estimated GFR BUN/Creatinine Ratio Glucose Calcium Phosphorus Magnesium Total Bilirubin AST ALT Alkaline Phosphatase Total Protein Albumin Globulin Albumin/Globulin Ratio Prealbumin 11.1 L Triglycerides 96 Nasal Screen MRSA (PCR) Negative for mrsa 10/18/21 10/19/21 10/19/21 17:35 08:25 08:25 WBC RBC Hgb Hct MCV MCH MCHC RDW Plt Count Neut % (Auto) Lymph % (Auto) [place] % (Auto) Eos % (Auto) Baso % (Auto) Neut # (Auto) Lymph # (Auto) [place] # (Auto) Eos # (Auto) Baso # (Auto) ABG pH 7.33 L ABG pCO2 45.9 H ABG pO2 61 L ABG HCO3 24 ABG Total CO2 26 ABG O2 Saturation 89 L ABG Base Excess -2.0 FiO2 68 Sodium 138 Potassium 4.3 Chloride 105 Carbon Dioxide 28 BUN 22 H Creatinine 1.12 Estimated GFR > 60.0 BUN/Creatinine Ratio 19.6 Glucose 134 H Calcium 8.4 Phosphorus 2.3 Magnesium 2.2 Total Bilirubin 0.5 AST 28 ALT 22 Alkaline Phosphatase 52 Total Protein 6.1 L Albumin 3.1 L Globulin 3.0 Albumin/Globulin Ratio 1.0 Prealbumin Triglycerides Nasal Screen MRSA (PCR) 10/19/21 08:25 WBC 17.0 H RBC 3.94 L Hgb 12.1 L Hct 35.7 L MCV 90.4 MCH 30.6 MCHC 33.8 RDW 13.5 Plt Count 182 Neut % (Auto) 91.3 H Lymph % (Auto) 4.2 L [place] % (Auto) 4.3 Eos % (Auto) 0.0 L Baso % (Auto) 0.2 Neut # (Auto) 69597 H Lymph # (Auto) 700 L [place] # (Auto) 700 Eos # (Auto) 0 Baso # (Auto) 0 ABG pH ABG pCO2 ABG pO2 ABG HCO3 ABG Total CO2 ABG O2 Saturation ABG Base Excess FiO2 Sodium Potassium Chloride Carbon Dioxide BUN Creatinine Estimated GFR BUN/Creatinine Ratio Glucose Calcium Phosphorus Magnesium Total Bilirubin AST ALT Alkaline Phosphatase Total Protein Albumin Globulin Albumin/Globulin Ratio Prealbumin Triglycerides Nasal Screen MRSA (PCR) Exam Vital Signs (past 8 hours): - 10/19/21 03:00 10/19/21 03:05 10/19/21 03:30 Temperature Pulse Rate 77 78 74 Respiratory Rate 17 13 13 Blood Pressure 120/58 L 141/67 H Pulse Oximetry 92 92 92 10/19/21 04:00 10/19/21 04:30 10/19/21 05:00 Temperature Pulse Rate 78 73 77 Respiratory Rate 18 12 10 L Blood Pressure Pulse Oximetry 93 93 92 10/19/21 05:30 10/19/21 06:00 10/19/21 07:00 Temperature 98.1 F Pulse Rate 80 81 79 Respiratory Rate 11 L 21 24 Blood Pressure 134/64 Pulse Oximetry 93 92 90 L Oxygen Delivery Method High Flow Nasal Cannula Oxygen Flow Rate 6 Quality TeleICU VTE Deep Vein Thrombosis/Pulmonary Embolism Present on Admission: No Assessment & Plan Assessment & Plan narrative: NEURO: -- Seek early mobility RESP: # Acute hypoxemia respiratory failure -- Secondary to atelectasis from postoperative abdominal surgery -- Encourage IS and early mobility as tolerated -- Cont titrating down supplemental oxygen to maintain goal SpO2 > 88% - HOB elevation -- Aspiration precaution GI: # Perforated duodenal ulcer -- s/p lynne's patch repair POD 1 -- NGT to low intermittent suction -- Start TPN today -- On zosyn and fluconazole -- Further management per primary surgical team ENDO: -- Goal BS < 180 Okay to downgrade to acute care status if deemed appropriate by primary team. Time Spent With Patient Critical Care time: I spent a total of [] minutes of critical care time on this patient's care today; this time is exclusive of procedural time.
[2021-10-19] MEDS: AMLODIPINE 5 MG TABLET 10 MG PO (11:40)
[2021-10-19] MEDS: PANTOPRAZOLE 40 MG VIAL IV ×2 (11:40→21:32)
[2021-10-19] MEDS: LOSARTAN 50 MG TABLET 100 MG PO (11:40)
[2021-10-19] MEDS: ENOXAPARIN 40 MG/0.4 ML SYRINGE SUBCUT (11:41)
[2021-10-19] MEDS: FLUCONAZOLE 200 MG/100 ML PIGGYBACK 100 MG IV (13:23)
[2021-10-19] MEDS: ONDANSETRON 4 MG/2 ML INJ IV ×2 (13:23→18:37)
[2021-10-19] MEDS: FENOFIBRATE, MICRONIZED 67 MG CAPSULE PO (13:23)
[2021-10-19] MEDS: AA 5 %/CALCIUM/LYTES/DEXT 20 % 1,000 ML with MULTIVITAMIN 10 ML, TRACE ELEMENTS 1 ML 42.125 ML IV (18:33)
[2021-10-19] MEDS: INSULIN LISPRO 100 UNIT/ML 3ML VIAL SUBCUT (18:37)
--- NOTE | 2021-10-19 18:52 | PC.NURSE ---
AM shift Pt is A/o x2, forgetful at times. Reports increased pain and medicating with 6 IV MS PRN, NG to LIS, bile output. Denies nausea at present. Meds to NG tube and clamping to allow absorption, IVF paused and TPN hung this AM, with increase to goal 42 mls/hr @ 1400. Pt is tolerating well. No changes to abd discomfort. Midline dressing aquacell, shadow drainage with minimal changes noted throughout 12 hour shift. Edges outlined. x2 sidney drains to ABD, L bilious output and R serosang. Per I/o charts. Davison patent. R IJ triple lumen. TPN started on [place] port. Pt is able to make needs known, using light. Daughter in room at bedside most of the day. Lungs are course and dim, with exertional wheeze at times. Instructed to splint and use IS 10xhr.Nc in place 2L Spo2 90-93%
[2021-10-19] MEDS: ATORVASTATIN 20 MG TABLET 80 MG PO (21:31)
[2021-10-20] VITALS (31 sets, daily range): BP systolic 156–168; BP diastolic 68–77; PULSE 58–88; RESP 10–45; TEMP 36.9–37.2; O2SAT 85–97
[2021-10-20] MEDS: LORazepam 2 MG/ML INJ 1 MG IV ×3 (00:39→20:41)
[2021-10-20] MEDS: PIPERACILLIN/TAZO 3.375 GM in SODIUM CHLORIDE 0.9% 100 ML 25 ML IV ×3 (03:57→20:17)
[2021-10-20] MEDS: INSULIN LISPRO 100 UNIT/ML 3ML VIAL SUBCUT (06:31)
[2021-10-20 07:10] LABS: Magnesium 2.2 mg/dL (1.6-2.3)
[2021-10-20 07:11] LABS: Alanine Aminotransferase 21 IU/L (<50); Alkaline Phosphatase 49 U/L (38-126); Aspartate Aminotransferase 23 IU/L (17-59); Bilirubin Total 0.5 mg/dL (0.2-1.3); Blood Urea Nitrogen 24 mg/dL (9-20); Calcium 8.4 mg/dL (8.4-10.2); Carbon Dioxide 30 mmol/L (22-32); Chloride 107 mmol/L (98-107); Estimated Glomerular Filt Rate > 60.0 mL/min (>60); Globulin 3.1 g/dL (1.7-4.1); Glucose 135 mg/dL (80-110); HEMOLYSIS < 15 (0-50); Potassium 3.6 mmol/L (3.4-5.1); Sodium 139 mmol/L (137-145); Total Protein 6.1 g/dL (6.3-8.2)
[2021-10-20] MEDS: AMLODIPINE 5 MG TABLET 10 MG PO (08:45)
[2021-10-20] MEDS: FENOFIBRATE, MICRONIZED 67 MG CAPSULE PO (08:46)
[2021-10-20] MEDS: LOSARTAN 50 MG TABLET 100 MG PO (08:46)
[2021-10-20] MEDS: FLUCONAZOLE 200 MG/100 ML PIGGYBACK 100 MG IV (08:47)
[2021-10-20] MEDS: PANTOPRAZOLE 40 MG VIAL IV ×2 (08:47→20:18)
[2021-10-20] MEDS: ENOXAPARIN 40 MG/0.4 ML SYRINGE SUBCUT (08:47)
[2021-10-20] MEDS: OXYCODONE IR 10 MG TABLET 20 MG PO (09:00)
--- NOTE | 2021-10-20 09:54 | PM.PN.1 ---
Subjective Subjective Date Patient Seen: 10/20/21 Time Patient Seen: 09:54 Interval history: Sore throat and anxiety. Exam Vital Signs (past 8 hours): - 10/20/21 02:00 10/20/21 02:30 10/20/21 03:00 Temperature Pulse Rate 70 78 64 Respiratory Rate 29 H 24 11 L Blood Pressure Pulse Oximetry 93 85 L 93 10/20/21 03:30 10/20/21 04:00 10/20/21 04:30 Temperature Pulse Rate 66 58 L 65 Respiratory Rate 16 19 19 Blood Pressure Pulse Oximetry 93 95 95 10/20/21 05:00 10/20/21 05:30 10/20/21 05:34 Temperature 98.9 F Pulse Rate 61 72 67 Respiratory Rate 10 L 29 H 18 Blood Pressure 161/77 H 168/77 H Pulse Oximetry 95 93 92 10/20/21 06:00 10/20/21 06:30 10/20/21 07:00 Temperature Pulse Rate 60 60 59 L Respiratory Rate 17 17 11 L Blood Pressure Pulse Oximetry 93 93 94 10/20/21 07:30 10/20/21 07:32 10/20/21 07:52 Temperature 98.4 F Pulse Rate 60 63 63 Respiratory Rate 11 L 21 23 Blood Pressure 161/76 H 161/76 H Pulse Oximetry 94 93 92 10/20/21 08:00 10/20/21 08:46 Temperature Pulse Rate 61 61 Respiratory Rate 12 Blood Pressure 161/76 H Pulse Oximetry 94 Oxygen Delivery Method Nasal Cannula Oxygen Flow Rate 3 Narrative Exam Narrative: abdomen is soft, incision intact. Left drain is clearing (not concentrated bile) leak resolving. Decreased O2 requirement Objective Labs Result Diagrams: 10/19/21 08:25 10/20/21 06:55 Labs: Laboratory Results - last 24 hr 10/20/21 10/20/21 06:55 06:55 Sodium 139 Potassium 3.6 Chloride 107 Carbon Dioxide 30 BUN 24 H Creatinine 1.00 Estimated GFR > 60.0 BUN/Creatinine Ratio 24.0 H Glucose 135 H Calcium 8.4 Phosphorus 2.0 L Magnesium 2.2 Total Bilirubin 0.5 AST 23 ALT 21 Alkaline Phosphatase 49 Total Protein 6.1 L Albumin 3.0 L Globulin 3.1 Albumin/Globulin Ratio 1.0 PFSH Medical History Arthritis Social History household members: none Smoking Status: Former smoker alcohol intake: former Assessment & Plan Assessment & Plan narrative: Transfer out of ICU and continue current orders. Remove Davison. Time Spent With Patient Critical Care time: I spent a total of [] minutes of critical care time on this patient's care today; this time is exclusive of procedural time. Quality VTE Deep Vein Thrombosis/Pulmonary Embolism Present on Admission: No
--- NOTE | 2021-10-20 10:58 | PC.NURSE ---
Addendum entered by Tersea Carrillo R.N. 10/20/21 18:47: Pt moved at 1830 to Rm 215, report will be given to Estelita at shift change, pt tolerated move well, be low and locked, call light within reach will continue to monitor. Original Note: Day shift note: A/O x3 impulsive and forgetful at times. C/O pain 7/10 and anxiety medicated with ordered meds, oral medications administered thru NG tube and clamped to allow for absorption, TPN infusing at goal 42mL/hr, pt tolerating well. Dr Pena at bedside, orders received to change midline aquacell dressing and move pt to Acute care floor, discontinue toth catheter. Changed dressing on midli with new aquacell dressing, changed LYRIC drain dressing R & L, and dressing on IJ. LYRIC drains have bilious output L and Serosang R. Daughter at bedside, Lungs are dim in bases, 2L NC in place SpO2 sat 91-95%. Bed low and locked call light within reach, will continue to treat and monitor as ordered.
--- NOTE | 2021-10-20 15:01 | CM.DPC ---
DCP Cont: Per MD, pt making slow progress but awaiting bowel tones and ability to tolerate advancing diet. Per RN, pt remains on NGT and TPN infusing but discontinued toth and oxygen levels stable and transitioning to floor care today from ICU status. Per RN, pt has been able to complete bed mobility and stand EOB with nursing staff and currently PT orders are not needed. Pt with some anxiety and impulsivity but cooperative and no behaviors. Plan: SW to follow closely for eventual advancing of pt's diet so NGT and TPN can be discontinued to confirm safe plan of home with Dtr support. SW to follow for any further identified needs. ODALIS Francois
[2021-10-20] MEDS: MORPHINE 2 MG/ML INJ 6 MG IV (15:49)
[2021-10-20] MEDS: AA 5 %/CALCIUM/LYTES/DEXT 20 % 1,500 ML with MULTIVITAMIN 10 ML, TRACE ELEMENTS 1 ML 62.958 ML IV (17:48)
[2021-10-20] MEDS: ATORVASTATIN 20 MG TABLET 80 MG PO (20:18)
[2021-10-21] VITALS (12 sets, daily range): BP systolic 142–173; BP diastolic 63–74; PULSE 61–71; RESP 14–18; TEMP 36.4–37.2; O2SAT 94–100
[2021-10-21] MEDS: MORPHINE 2 MG/ML INJ 6 MG IV ×5 (00:08→21:39)
[2021-10-21] MEDS: PIPERACILLIN/TAZO 3.375 GM in SODIUM CHLORIDE 0.9% 100 ML 25 ML IV ×3 (04:23→20:06)
[2021-10-21] MEDS: LORazepam 2 MG/ML INJ 1 MG IV ×2 (04:42→20:05)
[2021-10-21 05:36] LABS: Add Manual Diff / Slide Review NO; Basophils Absolute Auto 100 /uL (0-100); Eosinophils Absolute Auto 100 /uL (0-450); Eosinophils Percent Auto 1.3 % (2-4); Hematocrit 35.2 % (41-53); Hemoglobin 11.9 g/dL (13.5-17.5); Lymphocytes Absolute Auto 2000 /uL (1100-4500); Lymphocytes Percent Auto 17.3 % (25-40); Mean Corpuscular HGB Conc 33.8 % (30-36); Mean Corpuscular Hemoglobin 30.7 PG (26-34); Mean Corpuscular Volume 90.8 fL (80-100); Monocytes Absolute Auto 1200 /uL (0-900); Monocytes Percent Auto 10.1 % (3-14); Neutrophils Absolute Auto 8100 /uL (1500-7000); Neutrophils Percent Auto 70.3 % (50-75); Platelet Count 241 X10^3/uL (150-400); Red Blood Cell Count 3.88 X10^6/uL (4.5-5.9); Red Cell Distribution Width 13.3 % (11.6-14.8); White Blood Cell Count 11.5 X10^3/uL (4.5-11.0)
[2021-10-21 05:44] LABS: Alanine Aminotransferase 18 IU/L (<50); Alkaline Phosphatase 47 U/L (38-126); Aspartate Aminotransferase 18 IU/L (17-59); BUN Creatinine Ratio 20.9 (6-22); Bilirubin Total 0.6 mg/dL (0.2-1.3); Blood Urea Nitrogen 18 mg/dL (9-20); Calcium 8.2 mg/dL (8.4-10.2); Carbon Dioxide 30 mmol/L (22-32); Chloride 107 mmol/L (98-107); Estimated Glomerular Filt Rate > 60.0 mL/min (>60); Glucose 114 mg/dL (80-110); HEMOLYSIS < 15 (0-50); Phosphorous 3.3 mg/dL (2.3-3.7); Potassium 3.5 mmol/L (3.4-5.1); Sodium 138 mmol/L (137-145)
[2021-10-21 06:11] LABS: Magnesium 1.9 mg/dL (1.6-2.3)
--- NOTE | 2021-10-21 08:01 | PM.PN.1 ---
Subjective Subjective Date Patient Seen: 10/21/21 Time Patient Seen: 08:01 Interval history: Sore throat. Exam Vital Signs (past 8 hours): - 10/21/21 00:05 10/21/21 04:00 10/21/21 07:22 Temperature 97.6 F 98.8 F Pulse Rate 66 63 Respiratory Rate 16 14 Blood Pressure 173/63 H 168/70 H Pulse Oximetry 94 100 94 Oxygen Delivery Method Nasal Cannula Oxygen Flow Rate 3 Narrative Exam Narrative: Wound intact, drains are serous (no ongoing leak). Abdomen is benign Objective Labs Result Diagrams: 10/21/21 05:22 10/21/21 05:22 Labs: Laboratory Results - last 24 hr 10/21/21 10/21/21 10/21/21 05:22 05:22 05:22 WBC 11.5 H RBC 3.88 L Hgb 11.9 L Hct 35.2 L MCV 90.8 MCH 30.7 MCHC 33.8 RDW 13.3 Plt Count 241 Neut % (Auto) 70.3 D Lymph % (Auto) 17.3 L [place] % (Auto) 10.1 Eos % (Auto) 1.3 L Baso % (Auto) 1.0 Neut # (Auto) 8100 H Lymph # (Auto) 2000 [place] # (Auto) 1200 H Eos # (Auto) 100 Baso # (Auto) 100 Sodium 138 Potassium 3.5 Chloride 107 Carbon Dioxide 30 BUN 18 Creatinine 0.86 Estimated GFR > 60.0 BUN/Creatinine Ratio 20.9 Glucose 114 H Calcium 8.2 L Phosphorus 3.3 D Magnesium 1.9 Total Bilirubin 0.6 AST 18 ALT 18 Alkaline Phosphatase 47 Total Protein 6.0 L Albumin 3.0 L Globulin 3.0 Albumin/Globulin Ratio 1.0 [facility] Medical History Arthritis Social History household members: none Smoking Status: Former smoker alcohol intake: former Assessment & Plan Assessment & Plan narrative: S/p Xlap for duodenal oversew and Luis patch. No evidence of ongoing leak or GOO. Hypoxia post op has resolved Sepsis on admission has resolved with normal VS and WBC 11,000 Plan: Another day of bowel rest Continue TPN and check prealbumin Continue antibiotics IV. Time Spent With Patient Critical Care time: I spent a total of [] minutes of critical care time on this patient's care today; this time is exclusive of procedural time. Quality VTE Deep Vein Thrombosis/Pulmonary Embolism Present on Admission: No
[2021-10-21] MEDS: ENOXAPARIN 40 MG/0.4 ML SYRINGE SUBCUT (08:14)
[2021-10-21] MEDS: PANTOPRAZOLE 40 MG VIAL IV ×2 (08:15→20:06)
[2021-10-21] MEDS: LOSARTAN 50 MG TABLET 100 MG PO (08:15)
[2021-10-21 08:28] LABS: Fractionated Inspired Oxygen 72
[2021-10-21] MEDS: FLUCONAZOLE 200 MG/100 ML PIGGYBACK 100 MG IV (08:30)
[2021-10-21] MEDS: FENOFIBRATE, MICRONIZED 67 MG CAPSULE PO (08:30)
[2021-10-21] MEDS: AMLODIPINE 5 MG TABLET 10 MG PO (08:30)
--- NOTE | 2021-10-21 10:21 | DIET.CONS ---
Dietary Consultation Note Admission Date: 10/16/2021 19:52 Assessment: 70y M admitted for perforated duodenum started on TPN Thursday evening for bowel rest. Pt tolerating TPN Clinimix 5/20 1.5L bag running at 62mL/h. Recc increasing to 2L bag (82mL/h) with 250mL lipids every other day until pt safe and able to tolerate meaninful diet. Pt with inflammation, prealb, alb, RBP acute phase respondents, not good indicators of nutrition status in setting of inflammation. Ht: 189.23 cm Wt: 99 kg BMI: 27.6 Last BM: 10/14/21 (10/16/21 21:38) MNA: 11 Vish Score: 20 Diet: 10/16/21 16:00 NPO Diet Diet Modifications: Safety Tray needed?: No NPO Type: NPO except for Ice Chips Labs: RBC 3.88 X10^6/uL (4.5-5.9) L 10/21/21 05:22 Hgb 11.9 g/dL (13.5-17.5) L 10/21/21 05:22 Hct 35.2 % (41-53) L 10/21/21 05:22 Creatinine 0.86 mg/dL (0.66-1.25) 10/21/21 05:22 Lactate 1.8 mmol/L (0.7-2.1) 10/16/21 22:50 NT-Pro-B Natriuret Pep 369 pg/mL (<125) H 10/17/21 06:59 Nutrition Diagnosis: Inability to consume oral diet r/t perforated duodenum aeb pt NPO s/p patch repair of stomach, on TPN. Interventions: 1. Recc increasing TPN to 2L bag Clinimix 5/20 this evening at 1800 with lipids running every other day. Providing 85% kcal and 100% protein needs in this overweight patient. 2. When pt allowed PO diet, recc ONS Ensure Clear tid. EER: 2400kcals (25kcal/kg), 100g PRO (1.1g/kg) Monitoring/Evaluations: TPN advancement and tolerance, diet advancement Electronically Signed by: Erika Ybarra 10/21/21 10:21 Clinical Dietitian [address] [address]
[2021-10-21] MEDS: DEXT IV (18:54)
[2021-10-21] MEDS: LYTES IV (18:54)
[2021-10-21] MEDS: POTASSIUM CHLORIDE IV (18:54)
[2021-10-21] MEDS: CALCIUM IV (18:54)
[2021-10-21] MEDS: [UNRECOGNIZED DRUG - OTHER] IV (18:54)
[2021-10-21] MEDS: FAT EMULSIONS 50 GM/250 ML EMULSION IV (19:32)
[2021-10-21] MEDS: ATORVASTATIN 20 MG TABLET 80 MG PO (20:06)
[2021-10-22] VITALS (8 sets, daily range): BP systolic 124–160; BP diastolic 56–68; PULSE 65–73; RESP 16–20; TEMP 36.5–38.2; O2SAT 91–95
[2021-10-22] MEDS: LORazepam 2 MG/ML INJ 1 MG IV (03:35)
[2021-10-22] MEDS: PIPERACILLIN/TAZO 3.375 GM in SODIUM CHLORIDE 0.9% 100 ML 25 ML IV ×3 (03:47→19:57)
[2021-10-22] MEDS: MORPHINE 2 MG/ML INJ 6 MG IV ×3 (03:58→17:16)
[2021-10-22 05:27] LABS: Add Manual Diff / Slide Review NO; Basophils Absolute Auto 100 /uL (0-100); Basophils Percent Auto 0.4 % (0-2); Eosinophils Absolute Auto 400 /uL (0-450); Eosinophils Percent Auto 3.2 % (2-4); Hematocrit 38.1 % (41-53); Hemoglobin 12.6 g/dL (13.5-17.5); Lymphocytes Absolute Auto 1900 /uL (1100-4500); Lymphocytes Percent Auto 13.9 % (25-40); Mean Corpuscular HGB Conc 33.2 % (30-36); Mean Corpuscular Hemoglobin 30.1 PG (26-34); Mean Corpuscular Volume 90.8 fL (80-100); Monocytes Absolute Auto 1300 /uL (0-900); Monocytes Percent Auto 9.4 % (3-14); Neutrophils Absolute Auto 10000 /uL (1500-7000); Neutrophils Percent Auto 73.1 % (50-75); Platelet Count 260 X10^3/uL (150-400); Red Cell Distribution Width 13.4 % (11.6-14.8); White Blood Cell Count 13.7 X10^3/uL (4.5-11.0)
[2021-10-22 05:41] LABS: Alanine Aminotransferase 17 IU/L (<50); Alkaline Phosphatase 46 U/L (38-126); Aspartate Aminotransferase 17 IU/L (17-59); BUN Creatinine Ratio 19.2 (6-22); Bilirubin Total 0.7 mg/dL (0.2-1.3); Blood Urea Nitrogen 15 mg/dL (9-20); Calcium 8.5 mg/dL (8.4-10.2); Carbon Dioxide 28 mmol/L (22-32); Chloride 103 mmol/L (98-107); Estimated Glomerular Filt Rate > 60.0 mL/min (>60); Globulin 3.1 g/dL (1.7-4.1); Glucose 139 mg/dL (80-110); HEMOLYSIS < 15 (0-50); Phosphorous 3.5 mg/dL (2.3-3.7); Potassium 3.7 mmol/L (3.4-5.1); Sodium 134 mmol/L (137-145); Total Protein 6.1 g/dL (6.3-8.2)
[2021-10-22 05:48] LABS: Magnesium 1.8 mg/dL (1.6-2.3)
[2021-10-22 06:26] LABS: Prealbumin 14.1 mg/dL (17.6-36.0)
[2021-10-22 06:48] LABS: C-Reactive Protein Quant 11.3 mg/dL (<1.0)
[2021-10-22] MEDS: PANTOPRAZOLE 40 MG VIAL IV ×2 (10:00→20:11)
[2021-10-22] MEDS: LOSARTAN 50 MG TABLET 100 MG PO (10:00)
[2021-10-22] MEDS: ENOXAPARIN 40 MG/0.4 ML SYRINGE SUBCUT (10:00)
[2021-10-22] MEDS: AMLODIPINE 5 MG TABLET 20 MG PO (10:00)
[2021-10-22] MEDS: FLUCONAZOLE 200 MG/100 ML PIGGYBACK 100 MG IV (10:08)
[2021-10-22] MEDS: FENOFIBRATE, MICRONIZED 67 MG CAPSULE PO (10:29)
--- NOTE | 2021-10-22 11:20 | PT.IIE ---
Current Diagnoses Other postprocedural complications and disorders of respiratory system, not elsewhere classified (10/16/21) Chronic or unspecified duodenal ulcer with perforation (10/16/21) Perforation of intestine (nontraumatic) (10/16/21) Acute respiratory distress (10/16/21) Surgery Performed Operation Date: 10/18/21 12:45 Actual Procedures p Exploratory Laparotomy - Josefa Pena MD Medical History (Last Reviewed 10/18/21 @ 18:06 by Balbir Garcia MD) Arthritis Physical Therapy Inpatient Evaluation/Re-Eval M1 PT/OT-IP Prior Functional Status Start: 10/22/21 13:09 Freq: NEEDED Status: Active Protocol: Document 10/22/21 11:20 AB (Rec: 10/22/21 13: AB [email or web address]) Medical Review Prior Functional Status Medical History Reviewed Yes Communication able to make needs known Mobility and Gait pt stated that he is independent with all mobilities and ambulation without AD Social History Household Members none Living Arrangements Apartment/Condo Number of Floors (Floors) One Floor Number of Stairs To Enter/Railing? 1 step to enter Home Environment Standard Height Toilet,Walk in Shower Home Equipment Four Wheel Walker,Straight Cane,Shower Seat with Backrest ,Hand Held Shower,Grab Bars In Shower Additional Social History Comment pt stated that his daughter and grand daughter can possibly assist him and stay with him if needed pt stated that he sleeps on the floor next to the couch and uses the couch and another chair on the R side to assist him with getting up M2 PT-IP Current Condition Start: 10/22/21 13:09 Freq: NEEDED Status: Active Protocol: Document 10/22/21 11:20 AB (Rec: 10/22/21 13:22 AB [email or web address]) Physical Therapy Current Condition Current Condition Evaluation Date 10/22/21 Treatment Diagnosis perforated ulcer s/p ex lap; difficulty in walking Onset Date 10/16/21 M3 PT-IP Subjective Start: 10/22/21 13:09 Freq: NEEDED Status: Active Protocol: Document 10/22/21 11:20 AB (Rec: 10/22/21 13:22 AB [email or web address]) Subjective Physical Therapy Visit Type Type Initial Evaluation Visit Start Time 11:20 Visit Stop Time 11:55 Total Visit Minutes 35 Number of STAFF MIDWIFE Visits 0 Physical Therapy Visit Comments Patient Comments agreeable to do PT Therapy Pain Assessment Pain When Pain Assessed During Mobility Pain Present Pain Present Pain Reported Location Abdomen Scale Used scale not stated Pain Management Techniques Distraction,Modification of Treatment,Re-positioning M4 PT-IP Mobility and Gait Start: 10/22/21 13:09 Freq: NEEDED Status: Active Protocol: Document 10/22/21 11:20 AB (Rec: 10/22/21 13:22 AB [id number]) PT-Bed Mobility Assessment Rolling Type of Rolling Log Rolling Level of Assist Maximal Assistance Supine to Sit Supine to Sit Maximum Assistance,1 Person Assistance,Bedrails PT-Transfer Assessment Sit to and From Stand Sit to and from Stand Moderate Assistance,1 Person Assistance,Use of Upper Extremities Equipment Transfer Assistive Device Gait Belt,Front Wheeled Walker Orthotic/Prosthetic Devices or Brace: No Transfers Transfer Destination Chair Transfer Technique Stand Step Pivot Transfer Ability Level of Assist Moderate Assistance,1 Person Assistance,Use of Upper Extremities Comments Mobility Comments educated pt on abdominal precautions and log roll bed mobility. BP 152/68 completed log roll supine to sit max A and max cues. Able to sit on EOB SBA. BP checked: 157/70. pt completed sit to stand mod A and cues and ambulated ~ 2 ft using FWW mod A and stated that he needs to sit down. instructed to back up and pt sat on chair. positioned pt on chair. call light and table placed within reach. educated pt on safety and use of FWW. also informed pt that he cannot sleep on the floor for safety. informed regarding not being able to do log roll bed mobility when he lays down on the floor and difficulty getting up from the floor. pt understood and stated that he can set up the bed. Gait Assessment Gait Gait Assistance Required: Moderate Assistance,1 Person Assist Distance (Feet) 2 Able to Maintain Weight Bearing Status Yes During Gait Assistive Devices Assistive Device Gait Belt,Front Wheeled Walker Orthotic/Prosthetic Devices or Brace: No Gait Deviations General Gait Pattern Decreased Stride Length, Decreased Feet Clearance Factors Limiting Gait Function Factors Limiting Gait Function Decreased Activity Tolerance, Decreased Strength,Limited Range of Motion,Pain,Poor Balance,Poor Safety Awareness PT-Balance Assessment Sitting Balance and Reactions Static Sitting Balance Ability Good Dynamic Sitting Balance Ability Good Standing Balance and Reactions Static Standing Balance Ability Fair Dynamic Standing Balance Ability Poor Device Used FWW M5 PT-IP Objective Assessments Start: 10/22/21 13:09 Freq: NEEDED Status: Active Protocol: Document 10/22/21 11:20 AB (Rec: 10/22/21 13:22 AB [id number]) Orientation Orientation/Cognition Level of Alertness Alert Orientation Name Language Function Ability No Deficits Noted Safety Awareness Decreased Safety Awareness Memory Description No Deficits Noted Gross Range of Motion Lower Extremity ROM Assessment Within Functional Limits Strength Lower Extremity Strength Assessment Within Functional Limits Coordination Assessment Gross Coordination Gross Coordination WNL Sensation Assessment Sensation Gross Sensation WNL Muscle Tone Muscle Tone WNL Yes M6 PT-IP Treatment Start: 10/22/21 13:09 Freq: NEEDED Status: Active Protocol: Document 10/22/21 11:20 AB (Rec: 10/22/21 13:22 AB [id number]) Physical Therapy Treatment Education Education Provided Precautions,Weight Bearing Status,Post-Op Packet,Safety M7 PT-IP Assessment and Plan Start: 10/22/21 13:09 Freq: NEEDED Status: Active Protocol: Document 10/22/21 11:20 AB (Rec: 10/22/21 13:22 AB [email or web address]) PT Summary Assessment and Plan Potential Rehabilitation Potential Fair Status of Condition at Evaluation Evolving Summary Impairments Pain,ROM,Strength,Balance, Coordination,Sensation,Tone, Cognition,Bed Mobility, Transfers,Gait,Activity Tolerance Assessment Summary pt requiring mod A with mobility using FWW and unable to tolerate much activity affecting mobility independence. Pt will require SNF rehab at this time to improve overall strength and function for safe d/c. will continue to assess progress. Goals Bed Mobility Goal Standby Assistance Transfer Goal Standby Assistance,Front Wheeled Walker Gait Goal Standby Assistance,Front Wheel Walker Gait Distance 100 Other Goals improve bed mobility, transfers , ambulation using 4WW 250 ft mod I up/down 1 step using FWW/4WW mod I Days to Meet Goals 10 Frequency of Treatment Frequency Of Treatment Once a Day Treatment Plan Physical Therapy Treatment Plan Bed Mobility Training,Transfer Training,Gait Training, Therapeutic Exercise,Balance Retraining,Post Op Education, Discharge Planning,Hot or Cold Pack,Neuromuscular Re-ed, Coordination Retraining,Manual Therapy Other Recommendations and Next Treatment ambulation, log roll bed Focus mobility Precautions Abdominal Surgery Precautions Log Roll,Lifting Restrictions, Gait Belt above Incisional Area Recommendations To Nursing Amount of Assist Needed 1 Person Assist Discharge Recommendations PT Discharge Recommendations Home with 23/03 Assist Available,Home Health,SNF Rehab,Home vs SNF Equipment Needed for Home Before FWW if not safe with 4WW Discharge Transportation Needs at Discharge Private Vehicle,Wheelchair/ Cabulance
--- NOTE | 2021-10-22 11:31 | P.PN_ITS ---
Subjective Subjective Date Patient Seen: 10/22/21 Time Patient Seen: 11:31 Interval history: Bed is uncomfortable. Exam Vital Signs (past 8 hours): - 10/22/21 03:55 10/22/21 08:00 10/22/21 10:00 Temperature 98.9 F 98.2 F Pulse Rate 70 70 70 Respiratory Rate 18 20 Blood Pressure 160/68 H 134/56 L 134/56 L Pulse Oximetry 93 91 Oxygen Delivery Method Room Air Oxygen Flow Rate 2 Narrative Exam Narrative: Afebrile, VVS. WBC 13. Abdomen is soft with incision tenderness. Left drain w.o bile, both drains serous. Objective Labs Result Diagrams: 10/22/21 05:13 10/22/21 05:13 Labs: Laboratory Results - last 24 hr 10/22/21 10/22/21 10/22/21 05:13 05:13 05:13 WBC 13.7 H RBC 4.20 L Hgb 12.6 L Hct 38.1 L MCV 90.8 MCH 30.1 MCHC 33.2 RDW 13.4 Plt Count 260 Neut % (Auto) 73.1 Lymph % (Auto) 13.9 L Alfalfa % (Auto) 9.4 Eos % (Auto) 3.2 Baso % (Auto) 0.4 Neut # (Auto) 37449 H Lymph # (Auto) 1900 Alfalfa # (Auto) 1300 H Eos # (Auto) 400 Baso # (Auto) 100 Sodium 134 L Potassium 3.7 Chloride 103 Carbon Dioxide 28 BUN 15 Creatinine 0.78 Estimated GFR > 60.0 BUN/Creatinine Ratio 19.2 Glucose 139 H Calcium 8.5 Phosphorus 3.5 Magnesium 1.8 Total Bilirubin 0.7 AST 17 ALT 17 Alkaline Phosphatase 46 C-Reactive Protein Total Protein 6.1 L Albumin 3.0 L Globulin 3.1 Albumin/Globulin Ratio 1.0 Prealbumin 10/22/21 05:13 WBC RBC Hgb Hct MCV MCH MCHC RDW Plt Count Neut % (Auto) Lymph % (Auto) Alfalfa % (Auto) Eos % (Auto) Baso % (Auto) Neut # (Auto) Lymph # (Auto) Alfalfa # (Auto) Eos # (Auto) Baso # (Auto) Sodium Potassium Chloride Carbon Dioxide BUN Creatinine Estimated GFR BUN/Creatinine Ratio Glucose Calcium Phosphorus Magnesium Total Bilirubin AST ALT Alkaline Phosphatase C-Reactive Protein 11.3 H Total Protein Albumin Globulin Albumin/Globulin Ratio Prealbumin 14.1 L [facility] Medical History Arthritis Social History household members: none Smoking Status: Former smoker alcohol intake: former Assessment & Plan Assessment & Plan narrative: No evidence of bile leak post operative. Severe protein malnutrition with prealbumin of 14. Hypertension Plan: continue antibiotics for 10 day course Clamp trial of NGT successful, continue clamp and start clear liquids Continue TPN for full nutrition due to malnutrition May be able to remove NGT this evening if left drain does not change color or increase in volume. Time Spent With Patient Time with patient: less than 30 minutes Critical Care time: I spent a total of [] minutes of critical care time on this patient's care today; this time is exclusive of procedural time. Quality VTE Deep Vein Thrombosis/Pulmonary Embolism Present on Admission: No
[2021-10-22] MEDS: ACETAMINOPHEN 325 MG TABLET 650 MG PO (17:17)
[2021-10-22] MEDS: INSULIN LISPRO 100 UNIT/ML 3ML VIAL SUBCUT (17:19)
[2021-10-22] MEDS: CALCIUM IV (19:09)
[2021-10-22] MEDS: LYTES IV (19:09)
[2021-10-22] MEDS: [UNRECOGNIZED DRUG - OTHER] IV (19:09)
[2021-10-22] MEDS: DEXT IV (19:09)
[2021-10-22] MEDS: SODIUM CHLORIDE IV (19:09)
[2021-10-22] MEDS: SODIUM CHLORIDE 0.9% FLUSH 10 ML IV ×2 (19:57→20:11)
[2021-10-22] MEDS: ATORVASTATIN 20 MG TABLET 80 MG PO (20:11)
[2021-10-22] MEDS: OXYCODONE IR 10 MG TABLET 20 MG PO (20:11)
--- NOTE | 2021-10-22 22:07 | PC.NURSE ---
Patient is alert and oriented. Reports double vision in left eye related to recent endarterectomy. Breath sounds diminished at bases and complains of SOB with exertion but not at rest; RA sat is 93%. HRR. Denied nausea. BT present and is passing flatus but has not had BM since 10/14. Currently on TPN and was just started on clear liquid diet today. Abdomen is soft, tender and mildly distended. Aquacel dressing to midline is CDI. LYRIC x 2 compressed and intact; dressings around sites CDI. Reports chronic urgency with urination but denies dysuria or frequency and is using urinal. Able to turn himself in bed. Gait not assessed at this time but denies any weakness with ambulation. Agreeable to having bilateral calf SCD's placed at time of assessment. Complained of abdominal pain and was medicated earlier with oxycodone and is currently asleep. Fall risk score is moderate but patient oriented and verbalizes agreement to call for staff assistance if wanting to get out of bed so alarm is not activated at this time.
[2021-10-23] VITALS (9 sets, daily range): BP systolic 107–161; BP diastolic 45–66; PULSE 60–74; RESP 17–18; TEMP 36.3–36.9; O2SAT 93–98
[2021-10-23] MEDS: PIPERACILLIN/TAZO 3.375 GM in SODIUM CHLORIDE 0.9% 100 ML 25 ML IV (03:50)
[2021-10-23 08:09] LABS: Alanine Aminotransferase 15 IU/L (<50); Albumin 2.9 g/dL (3.5-5.0); Alkaline Phosphatase 49 U/L (38-126); Aspartate Aminotransferase 23 IU/L (17-59); BUN Creatinine Ratio 21.3 (6-22); Bilirubin Total 0.8 mg/dL (0.2-1.3); Blood Urea Nitrogen 20 mg/dL (9-20); Calcium 8.7 mg/dL (8.4-10.2); Carbon Dioxide 30 mmol/L (22-32); Chloride 103 mmol/L (98-107); Estimated Glomerular Filt Rate > 60.0 mL/min (>60); Glucose 124 mg/dL (80-110); HEMOLYSIS < 15 (0-50); Phosphorous 3.6 mg/dL (2.3-3.7); Potassium 4.6 mmol/L (3.4-5.1); Sodium 135 mmol/L (137-145); Total Protein 5.9 g/dL (6.3-8.2)
[2021-10-23 08:18] LABS: Magnesium 1.9 mg/dL (1.6-2.3)
[2021-10-23] MEDS: PANTOPRAZOLE 40 MG VIAL IV (08:46)
[2021-10-23] MEDS: OXYCODONE IR 10 MG TABLET 20 MG PO ×3 (08:46→20:11)
[2021-10-23] MEDS: AMLODIPINE 5 MG TABLET 20 MG PO (08:47)
[2021-10-23] MEDS: FENOFIBRATE, MICRONIZED 67 MG CAPSULE PO (08:47)
[2021-10-23] MEDS: LOSARTAN 50 MG TABLET 100 MG PO (08:47)
[2021-10-23] MEDS: ENOXAPARIN 40 MG/0.4 ML SYRINGE SUBCUT (08:48)
--- NOTE | 2021-10-23 09:33 | DI.RAD.S_ITS ---
PROCEDURE: FL UPPER GI SERIES INDICATIONS: eval for duodenal leak after repair COMPARISON: [facility], CT, CT ABDOMEN PELVIS W CON, 10/18/2021, 10:28. FINDINGS: Gastrografin was administered by mouth. The gastro graft and transit to the stomach was normal. There is delay of transit beyond the stomach and the patient was returned to his room and a delayed 1 hour KUB was performed. Delayed KUB demonstrates contrast to be within the stomach and duodenum with no evidence of leakage. IMPRESSION: No evidence of leakage from the stomach or duodenum. Dictated by: Chinmay Greene M.D. on 10/23/2021 at 16:24 Approved by: Chinmay Greene M.D. on 10/23/2021 at 16:27
--- NOTE | 2021-10-23 09:45 | PM.PN.1 ---
Subjective Subjective Date Patient Seen: 10/23/21 Time Patient Seen: 09:45 Interval history: Patient feeling ok. Gets full fast with liquids. Exam Vital Signs (past 8 hours): - 10/23/21 04:40 10/23/21 07:31 10/23/21 08:00 Temperature 98.4 F 98.0 F Pulse Rate 65 69 Respiratory Rate 18 18 Blood Pressure 161/57 H 137/61 Pulse Oximetry 98 93 96 10/23/21 08:47 Temperature Pulse Rate 69 Respiratory Rate Blood Pressure 137/61 Pulse Oximetry Oxygen Delivery Method Room Air Oxygen Flow Rate 0 Narrative Exam Narrative: Abdomen is soft, drains are appropriate content and volume. Wound intact. Objective Labs Result Diagrams: 10/22/21 05:13 10/23/21 07:30 Labs: Laboratory Results - last 24 hr 10/23/21 10/23/21 07:30 07:30 Sodium 135 L Potassium 4.6 Chloride 103 Carbon Dioxide 30 BUN 20 Creatinine 0.94 Estimated GFR > 60.0 BUN/Creatinine Ratio 21.3 Glucose 124 H Calcium 8.7 Phosphorus 3.6 Magnesium 1.9 Total Bilirubin 0.8 AST 23 ALT 15 Alkaline Phosphatase 49 Total Protein 5.9 L Albumin 2.9 L Globulin 3.0 Albumin/Globulin Ratio 1.0 PFSH Medical History Arthritis Social History household members: none Smoking Status: Former smoker alcohol intake: former Assessment & Plan Assessment & Plan narrative: Patient is progressing well. Tolerating clear liquids. As a precaution I will get an UGI study to confirm leak is sealed. Continue BID Protonix for 3 months Needs EGD in 3 months This willl be his last bag of TPN today unless Study indicates otherwise. Plan: Possible discharge tomorrow on soft diet, PPI, Antibiotics for another 4 days (Cipro only). Follow up in clinic for staple removal. Drains to be removed prior to discharge. Time Spent With Patient Critical Care time: I spent a total of [] minutes of critical care time on this patient's care today; this time is exclusive of procedural time. Quality VTE Deep Vein Thrombosis/Pulmonary Embolism Present on Admission: No
--- NOTE | 2021-10-23 11:51 | PT.IPTN ---
Current Diagnoses Other postprocedural complications and disorders of respiratory system, not elsewhere classified (10/16/21) Chronic or unspecified duodenal ulcer with perforation (10/16/21) Perforation of intestine (nontraumatic) (10/16/21) Acute respiratory distress (10/16/21) Surgery Performed Operation Date: 10/18/21 12:45 Actual Procedures p Exploratory Laparotomy - Josefa Pena MD Physical Therapy Treatment Note M2 PT-IP Current Condition Start: 10/22/21 13:09 Freq: NEEDED Status: Active Protocol: Document 10/23/21 11:15 SP (Rec: 10/23/21 13:24 SP [id number]) Physical Therapy Current Condition Current Condition Evaluation Date 10/22/21 Treatment Diagnosis perforated ulcer s/p ex lap; difficulty in walking Onset Date 10/16/21 M3 PT-IP Subjective Start: 10/22/21 13:09 Freq: NEEDED Status: Active Protocol: Document 10/23/21 11:15 SP (Rec: 10/23/21 13:24 SP [id number]) Subjective Physical Therapy Visit Type Type Treatment Note Visit Start Time 11:15 Visit Stop Time 11:51 Total Visit Minutes 36 Notes Vitals taken during tx: supine: BP 137/61 HR 67 post mobility: declined dizziness throughout tx. Number of CAR CHECKER Visits 1 Physical Therapy Visit Comments Patient Comments Pt agreeable to do PT 2nd attempt, later am. Patient Goals return home with family to assist him. Therapy Pain Assessment Pain When Pain Assessed During Mobility Pain Present Pain Present Pain Reported Location Abdomen Scale Used no scale rating given Description With Movement Pain Behaviors Facial Grimacing,Holding Area Pain Management Techniques Distraction,Modification of Treatment,Re-positioning M4 PT-IP Mobility and Gait Start: 10/22/21 13:09 Freq: NEEDED Status: Active Protocol: Document 10/23/21 11:15 SP (Rec: 10/23/21 13:24 SP [id number]) PT-Bed Mobility Assessment Rolling Type of Rolling Log Rolling Level of Assist Standby Assistance,Contact Guard Assistance Supine to Sit Supine to Sit Contact Guard Assistance, Minimal Assistance,1 Person Assistance,Bedrails Sit to Supine Sit to Supine Contact Guard Assistance, Bedrails Scooting Scooting to Edge of Bed Standby Assistance Scooting Up and Down in Bed Standby Assistance PT-Transfer Assessment Sit to and From Stand Sit to and from Stand Contact Guard Assistance,1 Person Assistance,Use of Upper Extremities Equipment Transfer Assistive Device Gait Belt,Front Wheeled Walker Orthotic/Prosthetic Devices or Brace: No Transfers Transfer Destination Chair Transfer Technique pt ambulated using FWW Transfer Ability Level of Assist Contact Guard Assistance,1 Person Assistance,Use of Upper Extremities Gait Assessment Gait Gait Assistance Required: Standby Assistance,Contact Guard Assist,1 Person Assist Distance (Feet) 30 Able to Maintain Weight Bearing Status Yes During Gait Assistive Devices Assistive Device Gait Belt,Front Wheeled Walker Orthotic/Prosthetic Devices or Brace: No Gait Deviations General Gait Pattern Antalgic,Decreased Stride Length,Decreased Feet Clearance Factors Limiting Gait Function Factors Limiting Gait Function Decreased Activity Tolerance, Decreased Strength,Limited Range of Motion,Pain,Poor Safety Awareness Comments Gait Comments Gait across room and back w/ FWW CGA, little unsteady trunk sways but self recovery, CAR CHECKER managed IV pole. Stair Climbing Assessment Evaluation Level of Assist On Stairs Contact Guard Assistance, Minimal Assistance,1 Person Assistance Devices Stair Climbing Assistive Devices Front Wheel Walker Technique/Endurance Stair Climbing Direction Ascend and Descend Stair Climbing Technique Step to Step Number of Steps Climbed 1 Stair Climbing Set # Repetitions (reps) 1 Comments Stair Climbing Comments Completed 1 PF step w/ FWW, CG - Min A for trunk stability and FWW safety positioning, cued for sequencing, no LOB. PT-Balance Assessment Sitting Balance and Reactions Static Sitting Balance Ability Good Dynamic Sitting Balance Ability Good Standing Balance and Reactions Static Standing Balance Ability Good Dynamic Standing Balance Ability Fair Device Used FWW Functional Assessments Other Functional Tests Performed balance testing next tx. M5 PT-IP Objective Assessments Start: 10/22/21 13:09 Freq: NEEDED Status: Active Protocol: Document 10/22/21 11:20 AB (Rec: 10/22/21 13:22 AB [id number]) Orientation Orientation/Cognition Level of Alertness Alert Orientation Name Language Function Ability No Deficits Noted Safety Awareness Decreased Safety Awareness Memory Description No Deficits Noted Gross Range of Motion Lower Extremity ROM Assessment Within Functional Limits Strength Lower Extremity Strength Assessment Within Functional Limits Coordination Assessment Gross Coordination Gross Coordination WNL Sensation Assessment Sensation Gross Sensation WNL Muscle Tone Muscle Tone WNL Yes M6 PT-IP Treatment Start: 10/22/21 13:09 Freq: NEEDED Status: Active Protocol: Document 10/23/21 11:15 SP (Rec: 10/23/21 13:24 SP [id number]) Physical Therapy Treatment Education Education Provided Precautions,Weight Bearing Status,Post-Op Packet,Safety Other Treatments Other Treatment Performed Education for abdominal precautions and proper log rolling, x2 reps with improved understanding and demonstration with Min cues, CGA to LR, CG- Min RSL>sit, sit> RSL> supine SBA cues for alignment. M7 PT-IP Assessment and Plan Start: 10/22/21 13:09 Freq: NEEDED Status: Active Protocol: Document 10/23/21 11:15 SP (Rec: 10/23/21 13:24 SP [id number]) PT Summary Assessment and Plan Potential Rehabilitation Potential Fair Status of Condition at Evaluation Evolving Summary Impairments Pain,ROM,Strength,Balance, Coordination,Sensation,Tone, Cognition,Bed Mobility, Transfers,Gait,Activity Tolerance Progress Towards Goals Progressing Toward Goals,Slow Progress due to Pain,Slow Progress due to Activity Tolerance,Slow Progress - Other Assessment Summary Pt improved in mobility. Requires min cues for proper log rolling and CG- Min A SL> Sit, able do self 2nd assessment. Transfers CGA w/ FWW. Gait little unsteady trunk sway but self recovery w /FWW CGA- SBA. Complete 1 PF step CG- Min A w/ FWW. Recommend CGT with family and 23/03 available assist HHPT vs SNF at this time to progress strength and balance with gait toward PLOF. Will continue to assess progress. Goals Bed Mobility Goal Standby Assistance Transfer Goal Standby Assistance,Front Wheeled Walker Gait Goal Standby Assistance,Front Wheel Walker Gait Distance 100 Other Goals improve bed mobility, transfers , ambulation using 4WW 250 ft mod I up/down 1 step using FWW/4WW mod I Days to Meet Goals 10 Frequency of Treatment Frequency Of Treatment Once a Day Treatment Plan Physical Therapy Treatment Plan Bed Mobility Training,Transfer Training,Gait Training, Therapeutic Exercise,Balance Retraining,Post Op Education, Discharge Planning,Hot or Cold Pack,Neuromuscular Re-ed, Coordination Retraining,Manual Therapy Other Recommendations and Next Treatment LR, precautions, FWW if not Focus safe with 4WW, recommending CGT with family for safety DC home, pt in agreement. Precautions Abdominal Surgery Precautions Log Roll,Lifting Restrictions, Gait Belt above Incisional Area Recommendations To Nursing Amount of Assist Needed Standby Assistance Discharge Recommendations PT Discharge Recommendations Home with 23/03 Assist Available,Home Health,SNF Rehab,Home vs SNF Equipment Needed for Home Before FWW if not safe with 4WW Discharge Transportation Needs at Discharge Private Vehicle,Wheelchair/ Cabulance
[2021-10-23] MEDS: INSULIN LISPRO 100 UNIT/ML 3ML VIAL SUBCUT (12:22)
--- NOTE | 2021-10-23 12:23 | CM.DPNOTE ---
DCP Note According to therapy team; it appears that patient will be cleared from their standpoint for DC home when medically cleared. Patient plans to DC home w/assist from dtwen Acevedo and grand dtr Jacquie . Will plan to r/o need for HH, F2F needed from surgery team if patient would benefit from HH services JW
--- NOTE | 2021-10-23 14:12 | DIET.PN1 ---
Dietary Progress Note RD Note: Surgery testing leak today to ensure closure prior to planned d/c tomorrow. Pt finishing last bag TPN today which is meeting his nutrition needs. Pt has been consuming clears without issue, however is experiencing some early satiety, likely secondary to continuous TPN meeting nutrition needs and some concern for PO intake. Pt advancing to fulls today, need for ONS Ensure Enlive to provide needed protein and micronutrients to continue healing process. Recc pt consume yogurt as well for protein and probiotics. Ht: 189.23 cm Wt: 96 kg BMI: 27.6 Last BM: 10/14/21 (10/16/21 21:38) MNA: 11 Vish Score: 15 Diet: 10/22/21 Lunch Clear Liquid Diet Diet Modifications: 10/23/21 Lunch Full Liquid Diet Diet Modifications: ensure enlive x2 between meals Nutrition Percent Meal Consumed 25% 10/23/21 14:07 Percent Meal Consumed 100% 10/23/21 08:00 Percent Meal Consumed 25% 10/22/21 18:00 Percent Meal Consumed 10 10/22/21 12:40 Percent Meal Consumed NPO 10/21/21 18:00 Labs: RBC 4.20 X10^6/uL (4.5-5.9) L 10/22/21 05:13 Hgb 12.6 g/dL (13.5-17.5) L 10/22/21 05:13 Hct 38.1 % (41-53) L 10/22/21 05:13 Creatinine 0.94 mg/dL (0.66-1.25) 10/23/21 07:30 Lactate 1.8 mmol/L (0.7-2.1) 10/16/21 22:50 NT-Pro-B Natriuret Pep 369 pg/mL (<125) H 10/17/21 06:59 Electronically Signed by: Erika Ybarra 10/23/21 14:12 Clinical Dietitian [address] [id number]
[2021-10-23] MEDS: SODIUM CHLORIDE 0.9% FLUSH 10 ML IV ×4 (14:35→20:13)
--- NOTE | 2021-10-23 14:53 | PC.NURSE ---
Addendum entered by Vicky Bansal R.N. 10/23/21 15:14: Back on unit at approx 1500. Pt reports nausea. No emesis at this time. Call light in reach and bed alarm is on. Original Note: Day shift: Pt off unit for imaging at approx 1430.
[2021-10-23] MEDS: ATORVASTATIN 20 MG TABLET 80 MG PO (20:08)
[2021-10-23] MEDS: CIPROFLOXACIN 250 MG TABLET 500 MG PO (20:10)
[2021-10-23] MEDS: PANTOPRAZOLE DR 40 MG TABLET PO (20:25)
--- NOTE | 2021-10-23 21:53 | PC.NURSE ---
Patient is alert and oriented. 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 Has no teeth; states he left his dentures at home. Breath sounds diminished at bases but CTA. States he still has difficulty taking deep breath but denies SOB with/without exertion; encouraged to use I.S. HRR. Denies nausea. BT hyperactive and is passing flatus; had loose/watery stool on previous shift. Having abdominal spasms/gas pains so was medicated with oxycodone and is currently asleep. Denies dysuria, frequency or urgency with urination. Is able to turn himself in bed. Up to bathroom with walker and SBA; is steady on feet. Aquacel dressing to midline abdomen intact with no new drainage. Bilateral LYRIC's are compressed and intact. discontinued use of SCD's earlier today. Fall risk score is high and bed alarm is activated.
[2021-10-24 00:12] VITALS: BP 110/57; PULSE 60; RESP 18; TEMP 36.7; O2SAT 95
[2021-10-24] MEDS: OXYCODONE IR 10 MG TABLET 20 MG PO (04:34)
[2021-10-24 05:54] VITALS: BP 132/54; PULSE 74; RESP 21; TEMP 36.3; O2SAT 94
[2021-10-24] MEDS: CIPROFLOXACIN 250 MG TABLET 500 MG PO (06:26)
[2021-10-24] MEDS: PANTOPRAZOLE DR 40 MG TABLET PO (06:26)
[2021-10-24] MEDS: SODIUM CHLORIDE 0.9% FLUSH 10 ML IV ×2 (06:40→08:29)
[2021-10-24 06:55] LABS: Hematocrit 36.3 % (41-53); Hemoglobin 11.9 g/dL (13.5-17.5); Mean Corpuscular HGB Conc 32.9 % (30-36); Mean Corpuscular Hemoglobin 30.3 PG (26-34); Platelet Count 338 X10^3/uL (150-400); Red Blood Cell Count 3.94 X10^6/uL (4.5-5.9); Red Cell Distribution Width 13.7 % (11.6-14.8); White Blood Cell Count 13.6 X10^3/uL (4.5-11.0)
[2021-10-24 06:58] LABS: Add Manual Diff / Slide Review YES
[2021-10-24 07:02] LABS: Alanine Aminotransferase 19 IU/L (<50); Albumin 3.1 g/dL (3.5-5.0); Alkaline Phosphatase 59 U/L (38-126); Aspartate Aminotransferase 20 IU/L (17-59); BUN Creatinine Ratio 24.4 (6-22); Bilirubin Total 0.8 mg/dL (0.2-1.3); Blood Urea Nitrogen 32 mg/dL (9-20); Calcium 8.6 mg/dL (8.4-10.2); Carbon Dioxide 27 mmol/L (22-32); Chloride 104 mmol/L (98-107); Estimated Glomerular Filt Rate 54.3 mL/min (>60); Glucose 113 mg/dL (80-110); HEMOLYSIS < 15 (0-50); Phosphorous 3.9 mg/dL (2.3-3.7); Potassium 4.1 mmol/L (3.4-5.1); Sodium 135 mmol/L (137-145); Total Protein 6.1 g/dL (6.3-8.2)
[2021-10-24 07:31] LABS: Anisocytosis 1+; Neutrophils Absolute Manual 10064 /uL (3000-5900); Total Cells Counted 100
[2021-10-24] MEDS: LOSARTAN 50 MG TABLET 100 MG PO (08:28)
[2021-10-24] MEDS: AMLODIPINE 5 MG TABLET 20 MG PO (08:28)
[2021-10-24] MEDS: FENOFIBRATE, MICRONIZED 67 MG CAPSULE PO (08:28)
[2021-10-24] MEDS: ENOXAPARIN 40 MG/0.4 ML SYRINGE SUBCUT (08:28)
--- NOTE | 2021-10-24 10:13 | PT.IPTN ---
Current Diagnoses Other postprocedural complications and disorders of respiratory system, not elsewhere classified (10/16/21) Chronic or unspecified duodenal ulcer with perforation (10/16/21) Perforation of intestine (nontraumatic) (10/16/21) Acute respiratory distress (10/16/21) Surgery Performed Operation Date: 10/18/21 12:45 Actual Procedures p Exploratory Laparotomy - Josefa Pena MD Physical Therapy Treatment Note M2 PT-IP Current Condition Start: 10/22/21 13:09 Freq: NEEDED Status: Active Protocol: Document 10/23/21 11:15 SP (Rec: 10/23/21 13:24 SP [id number]) Physical Therapy Current Condition Current Condition Evaluation Date 10/22/21 Treatment Diagnosis perforated ulcer s/p ex lap; difficulty in walking Onset Date 10/16/21 M3 PT-IP Subjective Start: 10/22/21 13:09 Freq: NEEDED Status: Active Protocol: Document 10/24/21 09:59 KS (Rec: 10/24/21 11:59 KS [id number]) Subjective Physical Therapy Visit Type Type Treatment Note Visit Start Time 09:59 Visit Stop Time 10:13 Total Visit Minutes 14 Number of TERMINOLOGIST Visits 2 Physical Therapy Visit Comments Patient Comments Pt agreeable to PT. Patient Goals return home with family to assist him. Therapy Pain Assessment Pain When Pain Assessed At Rest Pain Present Pain Present Pain Reported M4 PT-IP Mobility and Gait Start: 10/22/21 13:09 Freq: NEEDED Status: Active Protocol: Document 10/24/21 09:59 KS (Rec: 10/24/21 11:59 KS [id number]) PT-Bed Mobility Assessment Rolling Type of Rolling Log Rolling Level of Assist Standby Assistance,1 Person Assistance Supine to Sit Supine to Sit Standby Assistance,1 Person Assistance Scooting Scooting to Edge of Bed Standby Assistance PT-Transfer Assessment Sit to and From Stand Sit to and from Stand Contact Guard Assistance,1 Person Assistance,Use of Upper Extremities Equipment Transfer Assistive Device Gait Belt,Front Wheeled Walker Orthotic/Prosthetic Devices or Brace: No Transfers Transfer Destination Toilet Transfer Technique pt ambulated using FWW Transfer Ability Level of Assist Contact Guard Assistance,1 Person Assistance,Use of Upper Extremities Comments Mobility Comments Pt in bed upon arrival and agreeable to ambulation. SBA for logroll and sidelying<>sit , CGA for sit<>stand w/ FWW. Pt denied dizziness or lightheadedness when standing. Pt then ambulated ~100 ft around room w/ FWW SBA w/ slow gait and decreased stride and foot clearance. Pt w/o LOB during ambulation and reporting increased gas and requesting to use toilet. Pt left on toilet w/ call light and agreed to call nursing staff when ready to get up. CIRCULATION WORKER aware. Gait Assessment Gait Gait Assistance Required: Standby Assistance,1 Person Assist Distance (Feet) 100 Able to Maintain Weight Bearing Status Yes During Gait Assistive Devices Assistive Device Gait Belt,Front Wheeled Walker Orthotic/Prosthetic Devices or Brace: No Gait Deviations General Gait Pattern Antalgic,Decreased Stride Length,Decreased Feet Clearance Factors Limiting Gait Function Factors Limiting Gait Function Decreased Activity Tolerance, Decreased Strength,Limited Range of Motion,Pain,Poor Safety Awareness Comments Gait Comments Pt ambulated ~100 ft around room w/ FWW SBA. PT-Balance Assessment Sitting Balance and Reactions Static Sitting Balance Ability Good Dynamic Sitting Balance Ability Good Standing Balance and Reactions Static Standing Balance Ability Good Dynamic Standing Balance Ability Fair Device Used FWW M5 PT-IP Objective Assessments Start: 10/22/21 13:09 Freq: NEEDED Status: Active Protocol: Document 10/22/21 11:20 AB (Rec: 10/22/21 13:22 AB [id number]) Orientation Orientation/Cognition Level of Alertness Alert Orientation Name Language Function Ability No Deficits Noted Safety Awareness Decreased Safety Awareness Memory Description No Deficits Noted Gross Range of Motion Lower Extremity ROM Assessment Within Functional Limits Strength Lower Extremity Strength Assessment Within Functional Limits Coordination Assessment Gross Coordination Gross Coordination WNL Sensation Assessment Sensation Gross Sensation WNL Muscle Tone Muscle Tone WNL Yes M6 PT-IP Treatment Start: 10/22/21 13:09 Freq: NEEDED Status: Active Protocol: Document 10/24/21 09:59 KS (Rec: 10/24/21 11:59 KS [id number]) Physical Therapy Treatment Education Education Provided Precautions,Weight Bearing Status,Post-Op Packet,Safety Other Treatments Other Treatment Performed Reveuwed abdominal precautions , logroll. M7 PT-IP Assessment and Plan Start: 10/22/21 13:09 Freq: NEEDED Status: Active Protocol: Document 10/24/21 09:59 KS (Rec: 10/24/21 11:59 KS [id number]) PT Summary Assessment and Plan Potential Rehabilitation Potential Fair Status of Condition at Evaluation Evolving Summary Impairments Pain,ROM,Strength,Balance, Coordination,Sensation,Tone, Cognition,Bed Mobility, Transfers,Gait,Activity Tolerance Progress Towards Goals Progressing Toward Goals,Slow Progress due to Pain,Slow Progress due to Activity Tolerance,Slow Progress - Other Assessment Summary Pt SBA for bed mobility, CGA for sit<>Stand, and SBA for ambulation w/ FWW. Able to maintain abdominal precautions and no LOB today. Pt tolerated ~100 ft ambulation and likely could have tolerated more but needing to possibly have bowel movement. Will continue to assess progress, but anticipate pt will be safe to go home w/ family support and would benefit from HHPT to improve balance and activity tolerance . Goals Bed Mobility Goal Standby Assistance Transfer Goal Standby Assistance,Front Wheeled Walker Gait Goal Standby Assistance,Front Wheel Walker Gait Distance 100 Other Goals improve bed mobility, transfers , ambulation using 4WW 250 ft mod I up/down 1 step using FWW/4WW mod I Days to Meet Goals 10 Frequency of Treatment Frequency Of Treatment Once a Day Treatment Plan Physical Therapy Treatment Plan Bed Mobility Training,Transfer Training,Gait Training, Therapeutic Exercise,Balance Retraining,Post Op Education, Discharge Planning,Hot or Cold Pack,Neuromuscular Re-ed, Coordination Retraining,Manual Therapy Other Recommendations and Next Treatment LR, precautions, FWW if not Focus safe with 4WW, recommending CGT with family for safety DC home, pt in agreement. Precautions Abdominal Surgery Precautions Log Roll,Lifting Restrictions, Gait Belt above Incisional Area Recommendations To Nursing Amount of Assist Needed Standby Assistance Discharge Recommendations PT Discharge Recommendations Home with 24/ Assist Available,Home Health,Home vs SNF Equipment Needed for Home Before FWW if not safe with 4WW Discharge Transportation Needs at Discharge Private Vehicle,Wheelchair/ Cabulance
[2021-10-24 11:17] VITALS: BP 149/52; PULSE 66; RESP 18; TEMP 35.9; O2SAT 95
[2021-10-24] MEDS: NEOMYCIN/POLYMYXIN/BACITRA UD OINT 1 EACH TOP (13:57)
--- NOTE | 2021-10-24 15:30 | PC.NURSE ---
Addendum entered by Lidia Rios R.N. 10/24/21 16:22: Went over dc instructions and medications with patient and patients daughter, questions answered. Rx for new meds sent to [facility], patient taken via wc to vehicle driven by daughter, patient had all belongings. Original Note: Dr Monet in to see patient, removed midline dressing and reports sarah can be left open to air. Patient ready for discharge later this afternoon.
--- NOTE | 2021-11-13 14:57 | P.DS_ITS ---
History of Present Illness History of Present Illness Chief complaint: chest/abd pain/vomiting x1 day Narrative: Describes a day of epigastric discomfort follow by a sudden worsening with 10/10 pain epigastric and chest. Nausea and emesis, with fevers. WBC 21,[address] scan to my read of perforated duodenum (likely ulcer), duodenitis. No abscess or significant free air to suggest a contained perforation. Discharge Providers Provider Date of admission: 10/16/21 19:52 Discharge Date: 10/24/21 Primary care physician: Krissy Figueroa MD Consults: 10/22/21 09:35 Consult to Physical Therapy Evaluate & Treat Comment: Physician Instructions: Evaluate and Treat Discharge provider: Josefa Pena MD Summary Hospital Course Discharge Diagnosis: Perforated duodenal ulcer, s/p Xlap with oversewn duodenal ulcer and Luis patch Hospital Course: Patient met Sepsis diagnosis with tachycardia, elevated WBC and fever. He also had peritonitis on admit which is a clinical diagnosis of tenderness of abdomen. All resolved with antibiotics and surgery. Status at Discharge Cognitive/behavioral status at discharge: oriented Functional status at discharge: uses cane/walker Overall status at discharge: patient is back to baseline Exam Vital Signs (past 8 hours): Oxygen Delivery Method Room Air Oxygen Flow Rate 0 Objective Labs Result Diagrams: 10/24/21 06:40 10/24/21 06:40 [facility] Medical History Arthritis Social History household members: none Smoking Status: Former smoker alcohol intake: former Discharge Plan Discharge Plan Patient Disposition: Home Discharge orders & Medications Prescriptions: New pantoprazole 40 mg Tablet,Delayed Release (Dr/Ec) 40 mg PO 0700,2100 Qty: 90 0RF oxycodone 10 mg Tablet 20 mg PO Q3HR PRN (Reason: Pain, Severe (7-10)) Qty: 30 0RF Continued amlodipine 10 mg tablet 10 mg PO QAM 0RF aspirin 81 mg Tablet 81 mg PO BEDTIME 0RF losartan 100 mg tablet 100 mg PO BEDTIME 0RF fenofibrate 54 mg Tablet 54 mg PO DAILY 0RF atorvastatin tablet 80 mg PO BEDTIME 0RF Follow up/Referrals: Josefa Pena MD [Physician] - Krissy Figueroa MD [Primary Care Provider] - Diet/Activity/Treatments Diet: Diet as Tolerated Diet comment: start with full liquids and soft foods that are high protein. Activity: No lifting greater than 15 lbs for 4 weeks. And avoid constipation. Buy a bottle of Miralax for home Other treatments: Need to follow up in the office for staple removal next week Skin/Wound/Dressing Care Dressing: Can leave dressing off unless you have drainage or the sarah are irritating Visit Report/Discharge Packet Instructions: High-Calorie, High-Protein Diet, DI for Exploratory Laparotomy, DI for Prescription Opioid Use, [facility]: Wound Care Stand Alone Forms: Surgery Discharge Discharge Data Primary Care Provider: Krissy Figueroa VTE Deep Vein Thrombosis/Pulmonary Embolism Present on Admission: No
== END 2021-10-24 16:23 | disposition home or self-care (01) | DRG 326 ==
LOC: ED 18:43 → AC 19:53 → ICU 10-18 17:03 → AC 10-20 18:55
PROVIDERS: Internal Medicine Critical Care Medicine; Admitting Provider Surgery; Emergency Provider Emergency Medicine; PCP Student in an Organized Health Care Education/Training Program; Referring Provider Emergency Medicine; Visit Provider Surgery
PROC: 0DQ90ZZ Repair Duodenum, Open Approach (ICD-10-PCS; CPT 49000; principal; 2021-10-18 12:45)
DX: K26.5 Chronic or unspecified duodenal ulcer with perforation (principal); J96.01 Acute respiratory failure with hypoxia; A41.9 Sepsis, unspecified organism; K65.9 Peritonitis, unspecified; J98.11 Atelectasis; K29.80 Duodenitis without bleeding; I10 Essential (primary) hypertension; Z87.891 Personal history of nicotine dependence; Z20.822 Contact with and (suspected) exposure to COVID-19
CPT/HCPCS: 36415; 36592; 36600; 43840; 49905; 71045; 74018; 74177; 74240; 80053; 81003; 82550; 82805; 82962; 83605; 83690; 83735; 83880; 84100; 84134; 84478; 84484; 85007; 85025; 86140; 87040; 87635; 87797; 93005; 93010; 94760; 96361; 96365; 96375; 96376; 97116; 97162; 97530; 99233; 99284; 99291; C9803; B4185; B4189; C9113; J0330; J1100; J1170; J1450; J1642; J1650; J1815; J1940; J2060; J2270; J2405; J2543; J2704; J3010; J3480; J7613; Q9967